=== PATIENT | male | born 1960 | race Caucasian/White ===

== ENCOUNTER 2020-08-21 10:28 | Inpatient (IN) | payer OTHER, BC ==
[~2020-08-21] VITALS: Ht 182.9 cm; Wt 115.5 kg
[2020-08-21 10:59] LABS: BASOPHILS # (AUTO) 0.1 X10'3 (0-0.2); BASOPHILS % (AUTO) 0.6 % (0-1); EOSINOPHILS # (AUTO) 0.2 X10'3 (0-0.9); EOSINOPHILS % (AUTO) 1.9 % (0-6); HEMATOCRIT 30.6 % (42.0-52.0); LYMPHOCYTES # (AUTO) 1.1 X10'3 (1.1-4.8); MEAN CORPUSCULAR HEMOGLOBIN 29.9 PG (27.0-31.0); MEAN CORPUSCULAR HGB CONC 32.7 g/dL (33.0-36.5); MEAN CORPUSCULAR VOLUME 91.4 FL (78-98); MEAN PLATELET VOLUME 7.2 FL (7.4-10.4); MONOCYTES # (AUTO) 0.8 X10'3 (0-0.9); MONOCYTES % (AUTO) 7.8 % (2-12); NEUTROPHILS # (AUTO) 7.7 X10'3 (1.8-7.7); NEUTROPHILS % (AUTO) 78.7 % (42-75); PLATELET COUNT 322 X10'3 (140-440); RED BLOOD COUNT 3.35 X10'6 (4.70-6.10); RED CELL DISTRIBUTION WIDTH 17.5 % (11.5-14.5); WHITE BLOOD COUNT 9.8 X10'3 (4.5-11.0)
[2020-08-21 11:13] LABS: ALANINE AMINOTRANSFERASE 26 U/L (12-78); ALBUMIN 3.5 G/DL (3.4-5.0); ALBUMIN/GLOBULIN RATIO 0.9 (1.1-1.5); ALKALINE PHOSPHATASE 97 IU/L (46-116); ANION GAP 8 (8-16); ASPARTATE AMINO TRANSFERASE 14 U/L (10-37); BILIRUBIN,TOTAL 0.5 MG/DL (0.1-1.0); BLOOD UREA NITROGEN 23 MG/DL (7-18); BUN/CREATININE RATIO 18.5 (5.4-32.0); CALCIUM 8.8 MG/DL (8.5-10.1); CHLORIDE 107 MMOL/L (99-107); CREATININE 1.24 MG/DL (0.60-1.10); GLUCOSE 122 MG/DL (70-104); POTASSIUM 4.3 MMOL/L (3.5-5.1); SODIUM 143 MMOL/L (135-145); TOTAL CARBON DIOXIDE 27.9 MMOL/L (24-32); TOTAL PROTEIN 7.2 G/DL (6.4-8.2); eGFR 60 ML/MIN
[2020-08-21 11:16] LABS: TROPONIN I 0.12 NG/ML (0.0-0.05)
--- NOTE | 2020-08-21 12:45 | NUR ---
PLAN TO ADMIT TO HOSPITAL, CT HEAD AND ABDOMEN, NAHUM AGUIRRE IN ROOM DISCUSSING PLAN OF CARE
--- NOTE | 2020-08-21 12:46 | NUR ---
NO HEPARIN, NO BLOOD THINNERS PER NAHUM AGUIRRE
--- NOTE | 2020-08-21 13:13 | NUR ---
in ct scan per
--- NOTE | 2020-08-21 13:35 | NUR ---
NAHUM AGUIRRE CAN DRINK NOW THAT CT SCANS COMPLETED
[2020-08-21 13:56] LABS: PARTIAL THROMBOPLASTIN TIME 24 SECONDS (22-32)
[2020-08-21 14:17] LABS: CLARITY,URINE CLEAR (Clear); COLOR,URINE YELLOW (Yellow); GLUCOSE, URINE NEGATIVE (Neg); KETONES,URINE NEGATIVE (Neg); LEUKOCYTE ESTERASE ,URINE NEGATIVE (Neg); NITRITES, URINE NEGATIVE (Neg); OCCULT BLOOD,URINE NEGATIVE (Neg); PROTEIN,URINE 30 mg/dl (Neg)
[2020-08-21 14:19] LABS: UA COLLECTION TYPE CLN CATCH MIDSTREAM
[2020-08-21 14:23] LABS: BACTERIA,URINE NONE SEEN /HPF (Neg); MUCUS STRANDS NONE SEEN /LPF (Neg); RBC,URINE NONE SEEN /HPF (0-2); SQUAMOUS EPITHELIAL CELL,UR FEW /LPF (FEW); WBC,URINE 0-4 /HPF (0-4)
[2020-08-21] MEDS ORDERED: nitroGLYCERIN 0.4mg SUBLingual tab SL PRN (14:50)
[2020-08-21] MEDS ORDERED: morphine 2 MG/ML inj. syringe IV PRN ×2 (14:50)
[2020-08-21] MEDS ORDERED: magnesium hydroxide 30ml (MOM) UD suspension PO PRN (14:50)
[2020-08-21] MEDS ORDERED: acetaminophen 325mg tablet PO PRN ×2 (14:50)
[2020-08-21] MEDS ORDERED: ondansetron/PF 4mg/2ml inj IV PRN (14:50)
[2020-08-21] MEDS ORDERED: mag hydrox/Alum hydrox/simeth 30ml oral suspension PO PRN (14:50)
[2020-08-21] MEDS ORDERED: HYDROcodone/acetaminophen 5mg/325mg tablet PO PRN (14:50)
[2020-08-21 15:34] LABS: HEMOGLOBIN A1C 5.7 % (4.5-6.2)
[2020-08-21] MEDS ORDERED: ASPI81TA52 PO (15:53)
[2020-08-21] MEDS ORDERED: PANT-47 PO (15:53)
[2020-08-21] MEDS ORDERED: BENA40TA45 PO (15:53)
[2020-08-21] MEDS ORDERED: AMLO10TA PO (15:53)
[2020-08-21] MEDS ORDERED: ROSU40TA PO (15:53)
[2020-08-21] MEDS ORDERED: CARV-49 PO (15:53)
--- NOTE | 2020-08-21 16:54 | NUR ---
ALMAZ CELL [phone]
[2020-08-21] MEDS ORDERED: iohexol 350MG/ML 100ml bottle IV ONE (18:12)
--- NOTE | 2020-08-21 18:23 | NUR ---
NEURO TELE CONSULT FINISHED PRIOR TO PATIENT LEAVING FOR CTA NECK/HEAD
--- NOTE | 2020-08-21 18:23 | NUR ---
TO CT SCAN
--- NOTE | 2020-08-21 19:45 | NUR ---
PHONE REPORT TO GWEN LECHUGA PCU. JOVANNI TO GO TO ROOM 3013A ON [facility] WITH RN ON MONITOR
--- NOTE | 2020-08-21 19:48 | NUR ---
PER REQ OF PRIMARY RN, HOSPITALIST CONTACTED AND NOTIFIED THAT ED TROPONIN PROTOCOL HAD NOT BEEN ORDERED INITIALLY. DR DUGAN WISHES THIS TO BE ORDERED, I ORDERED TROPONIN PROTOCOL AT THIS TIME.
[2020-08-21 20:00] VITALS: BP 168/92
[2020-08-21] MEDS: carvedilol 6.25mg tablet PO SCH (21:15)
[2020-08-21 22:00] VITALS: BP 106/65
[2020-08-22] VITALS (8 sets, daily range): BP systolic 118–149; BP diastolic 65–87
[2020-08-22 01:50] LABS: BASOPHILS # (AUTO) 0.1 X10'3 (0-0.2); BASOPHILS % (AUTO) 0.9 % (0-1); EOSINOPHILS # (AUTO) 0.3 X10'3 (0-0.9); EOSINOPHILS % (AUTO) 3.4 % (0-6); HEMATOCRIT 26.7 % (42.0-52.0); HEMOGLOBIN 8.7 g/dl (14.0-17.9); LYMPHOCYTES % (AUTO) 20.6 % (21-51); MEAN CORPUSCULAR HEMOGLOBIN 30.1 PG (27.0-31.0); MEAN CORPUSCULAR HGB CONC 32.6 g/dL (33.0-36.5); MEAN CORPUSCULAR VOLUME 92.3 FL (78-98); MEAN PLATELET VOLUME 7.6 FL (7.4-10.4); MONOCYTES # (AUTO) 0.9 X10'3 (0-0.9); MONOCYTES % (AUTO) 9.5 % (2-12); NEUTROPHILS # (AUTO) 6.4 X10'3 (1.8-7.7); NEUTROPHILS % (AUTO) 65.6 % (42-75); PLATELET COUNT 289 X10'3 (140-440); RED CELL DISTRIBUTION WIDTH 17.9 % (11.5-14.5); WHITE BLOOD COUNT 9.7 X10'3 (4.5-11.0)
[2020-08-22 03:24] LABS: ALANINE AMINOTRANSFERASE 25 U/L (12-78); ALBUMIN/GLOBULIN RATIO 0.9 (1.1-1.5); ALKALINE PHOSPHATASE 73 IU/L (46-116); ANION GAP 8 (8-16); ASPARTATE AMINO TRANSFERASE 15 U/L (10-37); BILIRUBIN,TOTAL 0.6 MG/DL (0.1-1.0); BLOOD UREA NITROGEN 37 MG/DL (7-18); BUN/CREATININE RATIO 34.6 (5.4-32.0); CALCIUM 8.9 MG/DL (8.5-10.1); CHLORIDE 106 MMOL/L (99-107); CHOL/HDL RATIO 3.1 (0.00-4.99); CHOLESTEROL 100 MG/DL (0-200); CREATININE 1.07 MG/DL (0.60-1.10); GLUCOSE 113 MG/DL (70-104); HDL CHOLESTEROL 32 MG/DL (35-60); LDL CHOLESTEROL 46 MG/DL (50-100); POTASSIUM 4.3 MMOL/L (3.5-5.1); SODIUM 140 MMOL/L (135-145); TOTAL CARBON DIOXIDE 25.9 MMOL/L (24-32); TOTAL PROTEIN 6.3 G/DL (6.4-8.2); TRIGLYCERIDES 140 MG/DL (20-135); eGFR 71 ML/MIN
--- NOTE | 2020-08-22 07:00 | NUR ---
Patient in room PCU 3013. I have received report from Lorraine HIDALGO and had the opportunity to ask questions and assume patient care.
[2020-08-22 07:44] LABS: % IRON SATURATION 13 % (11-46); IRON 48 UG/DL (53-167); TOTAL IRON BINDING CAPACITY 365 UG/DL (259-388)
[2020-08-22] MEDS ORDERED: amLODIPine 5mg tablet PO SCH (08:00)
[2020-08-22] MEDS ORDERED: lisinopril 20mg tablet PO SCH (08:00)
[2020-08-22] MEDS ORDERED: pantoprazole 40mg Tablet.DR PO SCH (08:00)
[2020-08-22] MEDS: atorvastatin 20mg tablet PO SCH (08:55)
[2020-08-22] MEDS: carvedilol 6.25mg tablet PO SCH ×2 (08:55→21:02)
[2020-08-22 11:52] LABS: D-DIMER 1.82 MG/L FEU (0-0.50)
--- NOTE | 2020-08-22 15:19 | NUR ---
PAGER ID: [phone] MESSAGE: re: [id number], Niki Campbell May I have an order to send stool for guaiac test? (is brown/black, odorous) thank you, Sangita [phone] Will continue to monitor.
[2020-08-22 15:56] LABS: OCCULT BLOOD STOOL POSITIVE (Neg)
--- NOTE | 2020-08-22 18:00 | NUR ---
Problems reprioritized. Patient report given, questions answered & plan of care reviewed with Sangita HIDALGO.
--- NOTE | 2020-08-22 18:27 | NUR ---
Problems reprioritized. Patient report given, questions answered & plan of care reviewed with Christiane HIDALGO.
[2020-08-22] MEDS ORDERED: iohexol 350MG/ML 100ml bottle IV ONE (19:04)
[2020-08-22] MEDS: clopidogrel 75mg tablet PO SCH (21:03)
[2020-08-23] VITALS (14 sets, daily range): BP systolic 101–129; BP diastolic 52–73
[2020-08-23 06:05] LABS: BASOPHILS # (AUTO) 0.1 X10'3 (0-0.2); BASOPHILS % (AUTO) 0.8 % (0-1); EOSINOPHILS # (AUTO) 0.4 X10'3 (0-0.9); EOSINOPHILS % (AUTO) 4.3 % (0-6); HEMATOCRIT 26.1 % (42.0-52.0); HEMOGLOBIN 8.7 g/dl (14.0-17.9); LYMPHOCYTES # (AUTO) 1.7 X10'3 (1.1-4.8); LYMPHOCYTES % (AUTO) 19.4 % (21-51); MEAN CORPUSCULAR HEMOGLOBIN 30.5 PG (27.0-31.0); MEAN CORPUSCULAR HGB CONC 33.2 g/dL (33.0-36.5); MEAN CORPUSCULAR VOLUME 91.8 FL (78-98); MEAN PLATELET VOLUME 7.5 FL (7.4-10.4); MONOCYTES % (AUTO) 11.2 % (2-12); NEUTROPHILS # (AUTO) 5.7 X10'3 (1.8-7.7); NEUTROPHILS % (AUTO) 64.3 % (42-75); PLATELET COUNT 282 X10'3 (140-440); RED BLOOD COUNT 2.84 X10'6 (4.70-6.10); RED CELL DISTRIBUTION WIDTH 17.3 % (11.5-14.5); WHITE BLOOD COUNT 8.9 X10'3 (4.5-11.0)
[2020-08-23 06:09] LABS: ALANINE AMINOTRANSFERASE 24 U/L (12-78); ALBUMIN 3.3 G/DL (3.4-5.0); ALKALINE PHOSPHATASE 76 IU/L (46-116); ANION GAP 7 (8-16); ASPARTATE AMINO TRANSFERASE 14 U/L (10-37); BILIRUBIN,TOTAL 0.5 MG/DL (0.1-1.0); BLOOD UREA NITROGEN 29 MG/DL (7-18); BUN/CREATININE RATIO 21.5 (5.4-32.0); CALCIUM 8.9 MG/DL (8.5-10.1); CHLORIDE 106 MMOL/L (99-107); CREATININE 1.35 MG/DL (0.60-1.10); GLUCOSE 100 MG/DL (70-104); POTASSIUM 4.3 MMOL/L (3.5-5.1); SODIUM 140 MMOL/L (135-145); TOTAL CARBON DIOXIDE 27.2 MMOL/L (24-32); TOTAL PROTEIN 6.6 G/DL (6.4-8.2); eGFR 54 ML/MIN
--- NOTE | 2020-08-23 06:35 | NUR ---
Problems reprioritized. Patient report given, questions answered & plan of care reviewed with Marleni HIDALGO.
--- NOTE | 2020-08-23 07:02 | NUR ---
Patient in room PCU 3013. I have received report from Roberta HIDALGO and had the opportunity to ask questions and assume patient care.
[2020-08-23] MEDS ORDERED: metoprolol tartrate 1mg/ml inj IV PRN (07:25)
[2020-08-23] MEDS ORDERED: regadenoson 0.4mg/5ml syringe IV PRN (07:25)
[2020-08-23] MEDS ORDERED: aminophylline 250mg/10ml inj. IV PRN (07:25)
[2020-08-23] MEDS ORDERED: nitroGLYCERIN 0.4mg SUBLingual tab SL PRN (07:25)
[2020-08-23] MEDS: pantoprazole 40mg Tablet.DR PO SCH ×3 (07:49→20:42)
[2020-08-23] MEDS: atorvastatin 20mg tablet PO SCH ×2 (07:49→08:28)
[2020-08-23] MEDS: clopidogrel 75mg tablet PO SCH ×2 (07:49→08:29)
[2020-08-23] MEDS: carvedilol 6.25mg tablet PO SCH ×2 (08:26→20:42)
--- NOTE | 2020-08-23 12:34 | NUR ---
Paged Dr. Yu PAGER ID: [phone] MESSAGE: [phone] Adrian Prince. Valeria results in. Let me know if u want to continue NPO. JOHNU Crystal
--- NOTE | 2020-08-23 18:00 | NUR ---
Patient in room PCU 3013. I have received report from Marleni HIDALGO and had the opportunity to ask questions and assume patient care.
--- NOTE | 2020-08-23 18:37 | NUR ---
Problems reprioritized. Patient report given, questions answered & plan of care reviewed with Roberta HIDALGO.
[2020-08-24] VITALS (11 sets, daily range): BP systolic 108–149; BP diastolic 62–89
--- NOTE | 2020-08-24 07:00 | NUR ---
Patient in room PCU 3013. I have received report from Roberta HIDALGO and had the opportunity to ask questions and assume patient care.
--- NOTE | 2020-08-24 07:14 | NUR ---
Problems reprioritized. Patient report given, questions answered & plan of care reviewed with Marleni HIDALGO.
[2020-08-24 07:52] LABS: BASOPHILS # (AUTO) 0.1 X10'3 (0-0.2); BASOPHILS % (AUTO) 0.8 % (0-1); EOSINOPHILS # (AUTO) 0.3 X10'3 (0-0.9); EOSINOPHILS % (AUTO) 4.6 % (0-6); HEMATOCRIT 25.5 % (42.0-52.0); HEMOGLOBIN 8.3 g/dl (14.0-17.9); LYMPHOCYTES # (AUTO) 1.7 X10'3 (1.1-4.8); LYMPHOCYTES % (AUTO) 23.7 % (21-51); MEAN CORPUSCULAR HEMOGLOBIN 29.6 PG (27.0-31.0); MEAN CORPUSCULAR HGB CONC 32.4 g/dL (33.0-36.5); MEAN CORPUSCULAR VOLUME 91.5 FL (78-98); MEAN PLATELET VOLUME 7.7 FL (7.4-10.4); MONOCYTES # (AUTO) 0.7 X10'3 (0-0.9); MONOCYTES % (AUTO) 10.3 % (2-12); NEUTROPHILS # (AUTO) 4.3 X10'3 (1.8-7.7); NEUTROPHILS % (AUTO) 60.6 % (42-75); PLATELET COUNT 263 X10'3 (140-440); RED BLOOD COUNT 2.79 X10'6 (4.70-6.10); RED CELL DISTRIBUTION WIDTH 17.1 % (11.5-14.5); WHITE BLOOD COUNT 7.1 X10'3 (4.5-11.0)
[2020-08-24 07:57] LABS: ALANINE AMINOTRANSFERASE 28 U/L (12-78); ALBUMIN 3.3 G/DL (3.4-5.0); ALKALINE PHOSPHATASE 78 IU/L (46-116); ANION GAP 9 (8-16); ASPARTATE AMINO TRANSFERASE 18 U/L (10-37); BILIRUBIN,TOTAL 0.5 MG/DL (0.1-1.0); BLOOD UREA NITROGEN 26 MG/DL (7-18); BUN/CREATININE RATIO 21.5 (5.4-32.0); CALCIUM 8.9 MG/DL (8.5-10.1); CHLORIDE 105 MMOL/L (99-107); CREATININE 1.21 MG/DL (0.60-1.10); GLUCOSE 101 MG/DL (70-104); POTASSIUM 4.2 MMOL/L (3.5-5.1); SODIUM 140 MMOL/L (135-145); TOTAL CARBON DIOXIDE 26.5 MMOL/L (24-32); TOTAL PROTEIN 6.6 G/DL (6.4-8.2); eGFR 62 ML/MIN
[2020-08-24] MEDS ORDERED: fentaNYL/PF 50MCG/1 ML 2ML syringe ONE (08:19)
[2020-08-24] MEDS ORDERED: MIDAZolam 1 MG/ML 5ML VIAL ONE (08:20)
[2020-08-24] MEDS ORDERED: LIDOcaine Viscous 15ml cup ONE (08:20)
[2020-08-24] MEDS: pantoprazole 40mg Tablet.DR PO SCH (10:34)
[2020-08-24] MEDS: carvedilol 6.25mg tablet PO SCH (10:34)
[2020-08-24] MEDS ORDERED: PANT-47 PO (10:38)
[2020-08-24] MEDS ORDERED: CLOP75TA34 PO (10:38)
--- NOTE | 2020-08-24 12:33 | NUR ---
Patient stable for discharge per providers orders. Medications and discharge instructions discussed. PIV discontinued cannula intact. Belongings sent with patient. Wheeled to lobby via nursing staff. Went home in private vehicle.
== END 2020-08-24 12:33 | disposition home or self-care (01) | DRG 64 ==
LOC: ER 10:28 → ED HOLD 14:46 → EDBEDREQ 19:22 → PCU 3S 20:10
PROVIDERS: ADMIT Internal Medicine; ATTEND Internal Medicine
PROC: B3251ZZ Computerized Tomography (CT Scan) of Bilateral Common Carotid Arteries using Low Osmolar Contrast (ICD-10-PCS; 2020-08-21)
PROC: B32G1ZZ Computerized Tomography (CT Scan) of Bilateral Vertebral Arteries using Low Osmolar Contrast (ICD-10-PCS; 2020-08-21)
PROC: B32R1ZZ Computerized Tomography (CT Scan) of Intracranial Arteries using Low Osmolar Contrast (ICD-10-PCS; 2020-08-21)
PROC: B3281ZZ Computerized Tomography (CT Scan) of Bilateral Internal Carotid Arteries using Low Osmolar Contrast (ICD-10-PCS; 2020-08-21)
PROC: 5A09357 Assistance with Respiratory Ventilation, Less than 24 Consecutive Hours, Continuous Positive Airway Pressure (ICD-10-PCS; principal; 2020-08-22)
PROC: B32T1ZZ Computerized Tomography (CT Scan) of Left Pulmonary Artery using Low Osmolar Contrast (ICD-10-PCS; 2020-08-22)
PROC: B3201ZZ Computerized Tomography (CT Scan) of Thoracic Aorta using Low Osmolar Contrast (ICD-10-PCS; 2020-08-22)
PROC: B32S1ZZ Computerized Tomography (CT Scan) of Right Pulmonary Artery using Low Osmolar Contrast (ICD-10-PCS; 2020-08-22)
PROC: 5A09357 Assistance with Respiratory Ventilation, Less than 24 Consecutive Hours, Continuous Positive Airway Pressure (ICD-10-PCS; 2020-08-23)
PROC: 4A02XM4 Measurement of Cardiac Total Activity, External Approach (ICD-10-PCS; 2020-08-23)
PROC: 3E073KZ Introduction of Other Diagnostic Substance into Coronary Artery, Percutaneous Approach (ICD-10-PCS; 2020-08-23)
PROC: 0DB68ZX Excision of Stomach, Via Natural or Artificial Opening Endoscopic, Diagnostic (ICD-10-PCS; 2020-08-24)
PROC: 0W3P8ZZ Control Bleeding in Gastrointestinal Tract, Via Natural or Artificial Opening Endoscopic (ICD-10-PCS; 2020-08-24)
DX: I63.9 Cerebral infarction, unspecified (principal); I21.A1 Myocardial infarction type 2; K92.2 Gastrointestinal hemorrhage, unspecified; E78.5 Hyperlipidemia, unspecified; I10 Essential (primary) hypertension; K29.70 Gastritis, unspecified, without bleeding; E78.00 Pure hypercholesterolemia, unspecified; G47.33 Obstructive sleep apnea (adult) (pediatric); K21.9 Gastro-esophageal reflux disease without esophagitis; K31.819 Angiodysplasia of stomach and duodenum without bleeding; R29.700 NIHSS score 0; K22.2 Esophageal obstruction; K43.9 Ventral hernia without obstruction or gangrene; D50.0 Iron deficiency anemia secondary to blood loss (chronic); K44.9 Diaphragmatic hernia without obstruction or gangrene; Z79.02 Long term (current) use of antithrombotics/antiplatelets; Z79.899 Other long term (current) drug therapy; Z83.3 Family history of diabetes mellitus; Z86.73 Personal history of transient ischemic attack (TIA), and cerebral infarction without residual deficits; Z88.0 Allergy status to penicillin; Z88.2 Allergy status to sulfonamides; Z79.82 Long term (current) use of aspirin; Z90.49 Acquired absence of other specified parts of digestive tract
CPT/HCPCS: 36415; 43227; 43239; 70450; 70496; 70498; 70551; 71275; 74176; 78452; 80053; 80061; 81001; 82272; 82728; 83036; 83540; 83550; 83880; 84443; 84484; 85025; 85379; 85610; 85651; 85730; 86038; 87081; 93005; 93017; 93306; 99152; 99285; A4620; A9500; G0378; J2250; J2785; J3010; J7040; Q9967

== ENCOUNTER 2020-08-31 21:05 | Inpatient (IN) | payer OTHER, BC ==
[~2020-08-31] VITALS: Ht 182.9 cm; Wt 114.6 kg
[~2020-08-31 21:05] MED LIST: AMLO10TA PO; ASPI81TA52 PO; BENA40TA45 PO; CARV-49 PO; CLOP75TA34 PO; PANT-47 PO; ROSU40TA PO; temazepam 15mg capsule PO PRN
[2020-08-31 21:58] LABS: BASOPHILS # (AUTO) 0.1 X10'3 (0-0.2); BASOPHILS % (AUTO) 0.7 % (0-1); EOSINOPHILS # (AUTO) 0.3 X10'3 (0-0.9); LYMPHOCYTES # (AUTO) 1.3 X10'3 (1.1-4.8); LYMPHOCYTES % (AUTO) 15.2 % (21-51); MEAN CORPUSCULAR HGB CONC 33.3 g/dL (33.0-36.5); MEAN CORPUSCULAR VOLUME 90.2 FL (78-98); MEAN PLATELET VOLUME 7.7 FL (7.4-10.4); MONOCYTES # (AUTO) 0.8 X10'3 (0-0.9); MONOCYTES % (AUTO) 9.6 % (2-12); NEUTROPHILS # (AUTO) 6.3 X10'3 (1.8-7.7); NEUTROPHILS % (AUTO) 71.5 % (42-75); PLATELET COUNT 247 X10'3 (140-440); RED BLOOD COUNT 2.25 X10'6 (4.70-6.10); RED CELL DISTRIBUTION WIDTH 16.1 % (11.5-14.5); WHITE BLOOD COUNT 8.8 X10'3 (4.5-11.0)
[2020-08-31 22:00] LABS: HEMOGLOBIN 6.7 g/dl (14.0-17.9)
[2020-08-31 22:01] LABS: HEMATOCRIT 20.3 % (42.0-52.0)
[2020-08-31 22:03] LABS: PARTIAL THROMBOPLASTIN TIME 21 SECONDS (22-32)
[2020-08-31 22:05] LABS: ALANINE AMINOTRANSFERASE 22 U/L (12-78); ALBUMIN 3.4 G/DL (3.4-5.0); ALBUMIN/GLOBULIN RATIO 1.1 (1.1-1.5); ALKALINE PHOSPHATASE 69 IU/L (46-116); ANION GAP 12 (8-16); ASPARTATE AMINO TRANSFERASE 21 U/L (10-37); BILIRUBIN,TOTAL 0.4 MG/DL (0.1-1.0); BLOOD UREA NITROGEN 30 MG/DL (7-18); BUN/CREATININE RATIO 19.4 (5.4-32.0); CALCIUM 8.6 MG/DL (8.5-10.1); CHLORIDE 106 MMOL/L (99-107); CREATININE 1.55 MG/DL (0.60-1.10); GLUCOSE 128 MG/DL (70-104); SODIUM 143 MMOL/L (135-145); TOTAL CARBON DIOXIDE 25.2 MMOL/L (24-32); TOTAL PROTEIN 6.6 G/DL (6.4-8.2); eGFR 46 ML/MIN
[2020-08-31] MEDS ORDERED: morphine 2 MG/ML inj. syringe IV PRN ×2 (23:00)
[2020-08-31] MEDS ORDERED: ondansetron 4mg rapidly disintigrating tab PO PRN (23:00)
[2020-08-31] MEDS ORDERED: bisacodyl 10mg suppository rectal RC PRN (23:00)
[2020-08-31] MEDS ORDERED: magnesium hydroxide 30ml (MOM) UD suspension PO PRN (23:00)
[2020-08-31] MEDS ORDERED: mag hydrox/Alum hydrox/simeth 30ml oral suspension PO PRN (23:00)
[2020-08-31] MEDS ORDERED: acetaminophen 650mg rectal suppository RC PRN (23:00)
[2020-08-31] MEDS: normal saline 1000ml 1,000 ML IV SCH (23:00)
[2020-08-31] MEDS ORDERED: diphenhydrAMINE 50 mg/ml inj IV PRN (23:00)
[2020-08-31] MEDS ORDERED: diphenhydrAMINE 25mg capsule PO PRN (23:00)
[2020-08-31] MEDS ORDERED: ondansetron/PF 4mg/2ml inj IV PRN (23:00)
[2020-08-31] MEDS ORDERED: acetaminophen 325mg tablet PO PRN ×2 (23:00)
[2020-08-31] MEDS ORDERED: HYDROcodone/acetaminophen 5mg/325mg tablet PO PRN (23:00)
[2020-08-31 23:16] VITALS: BP 125/73
[2020-08-31 23:31] VITALS: BP 137/80
[2020-08-31] MEDS ORDERED: PANT40TA54 PO (23:54)
[2020-08-31] MEDS ORDERED: CLOP75TA15 PO (23:54)
[2020-09-01 00:31] VITALS: BP 139/72
[2020-09-01 00:45] VITALS: BP 129/69
[2020-09-01] MEDS: pantoprazole 40MG/NS 100ML BAG 100 ML IV SCH ×5 (01:13→19:07)
--- NOTE | 2020-09-01 01:42 | NUR ---
PATIENT PLACED ON HOSPITAL BED FOR COMFORT
[2020-09-01 01:51] LABS: ALANINE AMINOTRANSFERASE 29 U/L (12-78); ALBUMIN 3.5 G/DL (3.4-5.0); ALKALINE PHOSPHATASE 75 IU/L (46-116); ANION GAP 9 (8-16); ASPARTATE AMINO TRANSFERASE 20 U/L (10-37); BILIRUBIN,TOTAL 0.6 MG/DL (0.1-1.0); BLOOD UREA NITROGEN 29 MG/DL (7-18); BUN/CREATININE RATIO 20.6 (5.4-32.0); CALCIUM 8.5 MG/DL (8.5-10.1); CHLORIDE 105 MMOL/L (99-107); CHOLESTEROL 111 MG/DL (0-200); CREATININE 1.41 MG/DL (0.60-1.10); GLUCOSE 103 MG/DL (70-104); HDL CHOLESTEROL 37 MG/DL (35-60); LDL CHOLESTEROL 49 MG/DL (50-100); POTASSIUM 3.9 MMOL/L (3.5-5.1); SODIUM 142 MMOL/L (135-145); TOTAL PROTEIN 6.9 G/DL (6.4-8.2); TRIGLYCERIDES 149 MG/DL (20-135); eGFR 52 ML/MIN
[2020-09-01 02:05] LABS: BASOPHILS # (AUTO) 0.1 X10'3 (0-0.2); BASOPHILS % (AUTO) 0.7 % (0-1); EOSINOPHILS # (AUTO) 0.3 X10'3 (0-0.9); EOSINOPHILS % (AUTO) 3.5 % (0-6); HEMATOCRIT 23.6 % (42.0-52.0); HEMOGLOBIN 7.9 g/dl (14.0-17.9); LYMPHOCYTES # (AUTO) 1.8 X10'3 (1.1-4.8); LYMPHOCYTES % (AUTO) 18.9 % (21-51); MEAN CORPUSCULAR HEMOGLOBIN 30.5 PG (27.0-31.0); MEAN CORPUSCULAR HGB CONC 33.7 g/dL (33.0-36.5); MEAN CORPUSCULAR VOLUME 90.3 FL (78-98); NEUTROPHILS # (AUTO) 6.4 X10'3 (1.8-7.7); NEUTROPHILS % (AUTO) 66.9 % (42-75); PLATELET COUNT 259 X10'3 (140-440); RED BLOOD COUNT 2.61 X10'6 (4.70-6.10); RED CELL DISTRIBUTION WIDTH 15.9 % (11.5-14.5); WHITE BLOOD COUNT 9.5 X10'3 (4.5-11.0)
[2020-09-01 02:51] LABS: OCCULT BLOOD STOOL POSITIVE (Neg)
[2020-09-01] MEDS ORDERED: pantoprazole 40mg Tablet.DR PO SCH (08:00)
[2020-09-01] MEDS: atorvastatin 20mg tablet PO SCH (08:00)
[2020-09-01] MEDS: docusate sod 100mg capsule PO SCH ×2 (08:00→19:06)
[2020-09-01] MEDS: amLODIPine 5mg tablet PO SCH (08:40)
[2020-09-01] MEDS: lisinopril 20mg tablet PO SCH (08:40)
[2020-09-01] MEDS: carvedilol 6.25mg tablet PO SCH ×2 (08:41→19:06)
[2020-09-01] MEDS ORDERED: PEG 3350/Na sulf,bicarb,Cl/KCl oral sol 4 liter bottle PO ONE (11:20)
[2020-09-01] MEDS: normal saline 1000ml 1,000 ML IV SCH (13:40)
[2020-09-01 16:22] VITALS: BP 138/68
[2020-09-01 19:09] VITALS: BP 114/68
[2020-09-01 22:00] VITALS: BP 114/68
[2020-09-02] VITALS (15 sets, daily range): BP systolic 118–159; BP diastolic 67–94
[2020-09-02] MEDS: pantoprazole 40MG/NS 100ML BAG 100 ML IV SCH ×5 (00:08→22:40)
--- NOTE | 2020-09-02 06:14 | NUR ---
Problems reprioritized. Patient report given, questions answered & plan of care reviewed with GWEN Donovan.
--- NOTE | 2020-09-02 06:36 | NUR ---
Patient in room MED 312. I have received report from GWEN Medrano and had the opportunity to ask questions and assume patient care.
[2020-09-02] MEDS: carvedilol 6.25mg tablet PO SCH ×2 (07:09→21:55)
[2020-09-02] MEDS: docusate sod 100mg capsule PO SCH ×2 (08:00→20:00)
[2020-09-02 08:28] LABS: BASOPHILS # (AUTO) 0.1 X10'3 (0-0.2); BASOPHILS % (AUTO) 0.7 % (0-1); EOSINOPHILS # (AUTO) 0.3 X10'3 (0-0.9); EOSINOPHILS % (AUTO) 4.3 % (0-6); HEMOGLOBIN 7.7 g/dl (14.0-17.9); LYMPHOCYTES % (AUTO) 13.9 % (21-51); MEAN CORPUSCULAR HEMOGLOBIN 29.9 PG (27.0-31.0); MEAN CORPUSCULAR HGB CONC 33.5 g/dL (33.0-36.5); MEAN CORPUSCULAR VOLUME 89.2 FL (78-98); MEAN PLATELET VOLUME 7.9 FL (7.4-10.4); MONOCYTES # (AUTO) 0.6 X10'3 (0-0.9); MONOCYTES % (AUTO) 8.7 % (2-12); NEUTROPHILS # (AUTO) 5.1 X10'3 (1.8-7.7); NEUTROPHILS % (AUTO) 72.4 % (42-75); PLATELET COUNT 283 X10'3 (140-440); RED BLOOD COUNT 2.58 X10'6 (4.70-6.10); RED CELL DISTRIBUTION WIDTH 16.1 % (11.5-14.5)
[2020-09-02 08:49] LABS: ALANINE AMINOTRANSFERASE 27 U/L (12-78); ALBUMIN 3.2 G/DL (3.4-5.0); ALKALINE PHOSPHATASE 75 IU/L (46-116); ANION GAP 9 (8-16); ASPARTATE AMINO TRANSFERASE 23 U/L (10-37); BILIRUBIN,TOTAL 0.8 MG/DL (0.1-1.0); BLOOD UREA NITROGEN 18 MG/DL (7-18); BUN/CREATININE RATIO 17.1 (5.4-32.0); CALCIUM 8.4 MG/DL (8.5-10.1); CHLORIDE 106 MMOL/L (99-107); CREATININE 1.05 MG/DL (0.60-1.10); GLUCOSE 92 MG/DL (70-104); POTASSIUM 4.1 MMOL/L (3.5-5.1); SODIUM 143 MMOL/L (135-145); TOTAL PROTEIN 6.5 G/DL (6.4-8.2); eGFR 73 ML/MIN
[2020-09-02] MEDS ORDERED: LIDOcaine Viscous 15ml cup ONE (17:32)
[2020-09-02] MEDS ORDERED: fentaNYL/PF 50MCG/1 ML 2ML syringe ONE (17:33)
[2020-09-02] MEDS ORDERED: MIDAZolam 1 MG/ML 5ML VIAL ONE (17:33)
--- NOTE | 2020-09-02 18:00 | NUR ---
Patient off unit in procedure
--- NOTE | 2020-09-02 18:00 | NUR ---
Patient in room MED 312. I have received report from Venus HIDALGO and had the opportunity to ask questions and assume patient care.
--- NOTE | 2020-09-02 18:26 | NUR ---
Problems reprioritized. Patient report given, questions answered & plan of care reviewed with GWEN Mallory.
[2020-09-02] MEDS: amLODIPine 5mg tablet PO SCH (21:56)
[2020-09-02] MEDS: atorvastatin 20mg tablet PO SCH (21:56)
[2020-09-02] MEDS: lisinopril 20mg tablet PO SCH (21:56)
[2020-09-03] VITALS (10 sets, daily range): BP systolic 118–145; BP diastolic 63–90
[2020-09-03] MEDS: normal saline 1000ml 1,000 ML IV SCH (01:42)
[2020-09-03] MEDS: pantoprazole 40MG/NS 100ML BAG 100 ML IV SCH ×4 (01:42→16:00)
--- NOTE | 2020-09-03 06:10 | NUR ---
Problems reprioritized. Patient report given, questions answered & plan of care reviewed with Navarro HIDALGO.
--- NOTE | 2020-09-03 06:12 | NUR ---
Problems reprioritized. Patient report given, questions answered & plan of care reviewed with Jennifer HIDALGO.
[2020-09-03 06:38] LABS: ALANINE AMINOTRANSFERASE 24 U/L (12-78); ALKALINE PHOSPHATASE 73 IU/L (46-116); ANION GAP 7 (8-16); ASPARTATE AMINO TRANSFERASE 13 U/L (10-37); BILIRUBIN,TOTAL 0.6 MG/DL (0.1-1.0); BLOOD UREA NITROGEN 16 MG/DL (7-18); BUN/CREATININE RATIO 14.8 (5.4-32.0); CALCIUM 8.3 MG/DL (8.5-10.1); CHLORIDE 106 MMOL/L (99-107); CREATININE 1.08 MG/DL (0.60-1.10); GLUCOSE 87 MG/DL (70-104); POTASSIUM 3.8 MMOL/L (3.5-5.1); SODIUM 140 MMOL/L (135-145); TOTAL CARBON DIOXIDE 26.7 MMOL/L (24-32); TOTAL PROTEIN 6.1 G/DL (6.4-8.2); eGFR 70 ML/MIN
[2020-09-03 06:42] LABS: BASOPHILS # (AUTO) 0.1 X10'3 (0-0.2); BASOPHILS % (AUTO) 0.8 % (0-1); EOSINOPHILS # (AUTO) 0.3 X10'3 (0-0.9); EOSINOPHILS % (AUTO) 4.4 % (0-6); HEMATOCRIT 23.4 % (42.0-52.0); HEMOGLOBIN 7.7 g/dl (14.0-17.9); LYMPHOCYTES # (AUTO) 1.4 X10'3 (1.1-4.8); LYMPHOCYTES % (AUTO) 19.7 % (21-51); MEAN CORPUSCULAR HEMOGLOBIN 29.2 PG (27.0-31.0); MEAN CORPUSCULAR HGB CONC 32.8 g/dL (33.0-36.5); MEAN CORPUSCULAR VOLUME 88.9 FL (78-98); MEAN PLATELET VOLUME 7.7 FL (7.4-10.4); MONOCYTES # (AUTO) 0.8 X10'3 (0-0.9); MONOCYTES % (AUTO) 10.6 % (2-12); NEUTROPHILS # (AUTO) 4.6 X10'3 (1.8-7.7); NEUTROPHILS % (AUTO) 64.5 % (42-75); PLATELET COUNT 322 X10'3 (140-440); RED BLOOD COUNT 2.63 X10'6 (4.70-6.10); RED CELL DISTRIBUTION WIDTH 15.6 % (11.5-14.5); WHITE BLOOD COUNT 7.2 X10'3 (4.5-11.0)
[2020-09-03] MEDS: carvedilol 6.25mg tablet PO SCH (09:37)
[2020-09-03] MEDS: amLODIPine 5mg tablet PO SCH (09:38)
[2020-09-03] MEDS: atorvastatin 20mg tablet PO SCH (09:38)
[2020-09-03] MEDS: docusate sod 100mg capsule PO SCH (09:39)
[2020-09-03] MEDS: lisinopril 20mg tablet PO SCH (09:39)
[2020-09-03] MEDS ORDERED: epiNEPHrine 0.1mg/ml 10ml syringe ONE (14:19)
--- NOTE | 2020-09-03 18:09 | NUR ---
Patient in room MED 312. I have received report from Shahnaz RN and had the opportunity to ask questions and assume patient care.
== END 2020-09-03 19:05 | disposition home or self-care (01) | DRG 378 ==
LOC: ER 21:07 → ED HOLD 23:00 → UNDOADMIN 23:00 → MED 3N 09-01 12:20 → ED HOLD 09-01 12:20
PROVIDERS: ADMIT Family Medicine; ATTEND Internal Medicine
PROC: 30233N1 Transfusion of Nonautologous Red Blood Cells into Peripheral Vein, Percutaneous Approach (ICD-10-PCS; 2020-08-31)
PROC: 5A09357 Assistance with Respiratory Ventilation, Less than 24 Consecutive Hours, Continuous Positive Airway Pressure (ICD-10-PCS; principal; 2020-09-02)
PROC: 0W3P8ZZ Control Bleeding in Gastrointestinal Tract, Via Natural or Artificial Opening Endoscopic (ICD-10-PCS; 2020-09-02)
PROC: 0DBP8ZZ Excision of Rectum, Via Natural or Artificial Opening Endoscopic (ICD-10-PCS; 2020-09-02)
DX: K31.811 Angiodysplasia of stomach and duodenum with bleeding (principal); D62 Acute posthemorrhagic anemia; I13.0 Hypertensive heart and chronic kidney disease with heart failure and stage 1 through stage 4 chronic kidney disease, or unspecified chronic kidney disease; I50.20 Unspecified systolic (congestive) heart failure; N17.9 Acute kidney failure, unspecified; K92.2 Gastrointestinal hemorrhage, unspecified; E78.00 Pure hypercholesterolemia, unspecified; K62.1 Rectal polyp; R19.5 Other fecal abnormalities; K57.30 Diverticulosis of large intestine without perforation or abscess without bleeding; E78.5 Hyperlipidemia, unspecified; G47.30 Sleep apnea, unspecified; E86.0 Dehydration; N18.30 Chronic kidney disease, stage 3 unspecified; Z79.02 Long term (current) use of antithrombotics/antiplatelets; Z86.73 Personal history of transient ischemic attack (TIA), and cerebral infarction without residual deficits; Z87.442 Personal history of urinary calculi; Z88.0 Allergy status to penicillin; Z88.2 Allergy status to sulfonamides; Z79.899 Other long term (current) drug therapy
CPT/HCPCS: 36415; 36430; 43227; 43236; 43255; 45385; 80053; 80061; 82272; 83735; 83880; 84100; 85025; 85610; 85730; 86885; 86900; 86901; 86920; 87081; 99152; 99153; 99285; A4620; C1773; C9113; G0378; J0171; J2250; J3010; J7030; J7040; P9016

== ENCOUNTER 2020-09-15 07:44 | Day surgery (SDC) | payer OTHER, BC ==
[~2020-09-15] VITALS: Ht 182.9 cm; Wt 118.3 kg
[2020-09-15] VITALS (13 sets, daily range): BP systolic 123–162; BP diastolic 62–102
[~2020-09-15 07:44] MED LIST changes: -ASPI81TA52 PO; +CLOP75TA15 PO; -CLOP75TA34 PO; -PANT-47 PO; +PANT40TA54 PO; -temazepam 15mg capsule PO PRN
[2020-09-15] MEDS ORDERED: normal saline 1,000 ML IV SCH (08:15)
[2020-09-15] MEDS ORDERED: LORazepam 0.5 MG tablet PO PRN (08:15)
[2020-09-15] MEDS ORDERED: diphenhydrAMINE 25mg capsule PO PRN (08:15)
[2020-09-15] MEDS ORDERED: LIDOcaine/PRILOcaine 5gm cream TP ONE (08:40)
[2020-09-15 09:40] LABS: BASOPHILS # (AUTO) 0.1 X10'3 (0-0.2); BASOPHILS % (AUTO) 0.8 % (0-1); EOSINOPHILS # (AUTO) 0.3 X10'3 (0-0.9); EOSINOPHILS % (AUTO) 3.1 % (0-6); HEMATOCRIT 28.6 % (42.0-52.0); HEMOGLOBIN 9.3 g/dl (14.0-17.9); LYMPHOCYTES # (AUTO) 1.3 X10'3 (1.1-4.8); LYMPHOCYTES % (AUTO) 13.7 % (21-51); MEAN CORPUSCULAR HEMOGLOBIN 28.2 PG (27.0-31.0); MEAN CORPUSCULAR HGB CONC 32.4 g/dL (33.0-36.5); MEAN CORPUSCULAR VOLUME 86.9 FL (78-98); MEAN PLATELET VOLUME 7.9 FL (7.4-10.4); MONOCYTES # (AUTO) 0.8 X10'3 (0-0.9); MONOCYTES % (AUTO) 8.6 % (2-12); NEUTROPHILS # (AUTO) 6.7 X10'3 (1.8-7.7); NEUTROPHILS % (AUTO) 73.8 % (42-75); PLATELET COUNT 434 X10'3 (140-440); RED BLOOD COUNT 3.29 X10'6 (4.70-6.10); RED CELL DISTRIBUTION WIDTH 15.1 % (11.5-14.5); WHITE BLOOD COUNT 9.1 X10'3 (4.5-11.0)
[2020-09-15] MEDS ORDERED: iohexol 350 MG/ML 50ML vial IV ONE ×2 (09:45→10:56)
[2020-09-15] MEDS ORDERED: iohexol 350MG/ML 100ml bottle IV ONE (09:45)
[2020-09-15] MEDS ORDERED: midazolam 1 mg/ML 2ml injection ONE (09:45)
[2020-09-15] MEDS ORDERED: heparin 1,000unit/ml 10ml vial 10 ML ONE (09:45)
[2020-09-15] MEDS ORDERED: LIDOcaine 1% (10mg/ml)w/preservative injection 20ml MDV ONE (09:45)
[2020-09-15] MEDS ORDERED: fentaNYL/PF 50MCG/1 ML 2ML syringe ONE (09:45)
[2020-09-15] MEDS ORDERED: nitroGLYCERIN-Tridil 50MG/D5W 250 ML IV ONE (09:45)
[2020-09-15] MEDS ORDERED: verapamil 2.5 mg/ml inj IV ONE (09:45)
[2020-09-15 09:48] LABS: ALBUMIN 3.8 G/DL (3.4-5.0); ANION GAP 9 (8-16); BLOOD UREA NITROGEN 28 MG/DL (7-18); BUN/CREATININE RATIO 24.3 (5.4-32.0); CHLORIDE 106 MMOL/L (99-107); CREATININE 1.15 MG/DL (0.60-1.10); GLUCOSE 114 MG/DL (70-104); POTASSIUM 4.5 MMOL/L (3.5-5.1); SODIUM 141 MMOL/L (135-145); TOTAL CARBON DIOXIDE 25.6 MMOL/L (24-32); eGFR 65 ML/MIN
[2020-09-15 10:55] LABS: ISTAT HGB ART 9.2 g/dl (14.0-18.0); ISTAT Hct ART 27 %PCV (42-52); ISTAT O2 SATURATION ARTERIAL 94 % (95-98); ISTAT SOURCE ART
[2020-09-19 08:21] LABS: ISTAT Hct MIX 27 %PCV (42-52); ISTAT O2 SATURATION MIX VENOUS 69 % (60-80); ISTAT SOURCE CAP
== END 2020-09-15 17:05 | disposition home or self-care (01) ==
LOC: SSTAY O 07:44
PROVIDERS: ATTEND Internal Medicine Cardiovascular Disease
DX: R94.39 Abnormal result of other cardiovascular function study (principal); I25.10 Atherosclerotic heart disease of native coronary artery without angina pectoris; I10 Essential (primary) hypertension; E78.5 Hyperlipidemia, unspecified; G47.33 Obstructive sleep apnea (adult) (pediatric); D64.9 Anemia, unspecified; Z86.73 Personal history of transient ischemic attack (TIA), and cerebral infarction without residual deficits; Z79.01 Long term (current) use of anticoagulants; Z79.899 Other long term (current) drug therapy; Z90.49 Acquired absence of other specified parts of digestive tract; Z98.890 Other specified postprocedural states; Z82.49 Family history of ischemic heart disease and other diseases of the circulatory system
CPT/HCPCS: 36415; 76937; 80048; 82803; 85014; 85025; 85610; 93005; 93460; 99152; 99153; C1769; C1894; J1644; J2001; J2250; J3010; J7030; Q0163; Q9967; A4620; A6258; C1751; J3490

== ENCOUNTER 2021-03-04 09:32 | Inpatient (IN) | payer OTHER, BC ==
[~2021-03-04] VITALS: Ht 182.9 cm; Wt 116.0 kg
[2021-03-04 10:37] LABS: BASOPHILS # (AUTO) 0.1 X10'3 (0-0.2); BASOPHILS % (AUTO) 0.7 % (0-1); EOSINOPHILS # (AUTO) 0.2 X10'3 (0-0.9); EOSINOPHILS % (AUTO) 2.5 % (0-6); HEMATOCRIT 42.7 % (42.0-52.0); HEMOGLOBIN 14.3 g/dl (14.0-17.9); LYMPHOCYTES # (AUTO) 1.4 X10'3 (1.1-4.8); LYMPHOCYTES % (AUTO) 14.7 % (21-51); MEAN CORPUSCULAR HEMOGLOBIN 28.5 PG (27.0-31.0); MEAN CORPUSCULAR HGB CONC 33.6 g/dL (33.0-36.5); MEAN CORPUSCULAR VOLUME 84.8 FL (78-98); MEAN PLATELET VOLUME 8.5 FL (7.4-10.4); MONOCYTES # (AUTO) 0.7 X10'3 (0-0.9); MONOCYTES % (AUTO) 7.6 % (2-12); NEUTROPHILS # (AUTO) 6.9 X10'3 (1.8-7.7); NEUTROPHILS % (AUTO) 74.5 % (42-75); PLATELET COUNT 270 X10'3 (140-440); RED BLOOD COUNT 5.03 X10'6 (4.70-6.10); RED CELL DISTRIBUTION WIDTH 15.3 % (11.5-14.5); WHITE BLOOD COUNT 9.3 X10'3 (4.5-11.0)
[2021-03-04 10:45] LABS: PARTIAL THROMBOPLASTIN TIME 26 SECONDS (22-32)
[2021-03-04 10:49] LABS: ALANINE AMINOTRANSFERASE 29 U/L (12-78); ALBUMIN 3.6 G/DL (3.4-5.0); ALBUMIN/GLOBULIN RATIO 0.9 (1.1-1.5); ALKALINE PHOSPHATASE 88 IU/L (46-116); ANION GAP 10 (8-16); ASPARTATE AMINO TRANSFERASE 21 U/L (10-37); BILIRUBIN,TOTAL 0.8 MG/DL (0.1-1.0); BLOOD UREA NITROGEN 24 MG/DL (7-18); BUN/CREATININE RATIO 24.2 (5.4-32.0); CHLORIDE 104 MMOL/L (99-107); CREATININE 0.99 MG/DL (0.60-1.10); GLUCOSE 137 MG/DL (70-104); POTASSIUM 3.8 MMOL/L (3.5-5.1); SODIUM 141 MMOL/L (135-145); TOTAL CARBON DIOXIDE 26.8 MMOL/L (24-32); TOTAL PROTEIN 7.4 G/DL (6.4-8.2); eGFR 78 ML/MIN
[2021-03-04] MEDS ORDERED: aspirin 325mg tablet PO ONE (11:10)
[2021-03-04] MEDS ORDERED: magnesium Cl slow-release 64mg tablet PO PRN (11:15)
[2021-03-04] MEDS ORDERED: HYDROmorphone inj. 0.5 MG/0.5 ML DISP.SYRIN IV PRN (11:15)
[2021-03-04] MEDS ORDERED: HYDROmorphone/PF 0.2 MG/ML SYRINGE IV PRN (11:15)
[2021-03-04] MEDS ORDERED: metoclopramide 5 mg/ml inj IV PRN (11:15)
[2021-03-04] MEDS ORDERED: PERFLUTREN PROTEIN-A MICROSPHR (Optison) 0.22 MG/ML 3ML VIAL IV ONE (11:15)
[2021-03-04] MEDS ORDERED: potassium Cl 20 mEq SR tablet PO PRN ×2 (11:15)
[2021-03-04] MEDS ORDERED: HYDROcodone/acetaminophen 10/325mg tab PO PRN (11:15)
[2021-03-04] MEDS ORDERED: acetaminophen 325mg tablet PO PRN ×2 (11:15)
[2021-03-04] MEDS ORDERED: magnesium 4gm in 100ml NS 100 ML IV PRN (11:15)
[2021-03-04] MEDS ORDERED: magnesium hydroxide 30ml (MOM) UD suspension PO PRN (11:15)
[2021-03-04] MEDS ORDERED: ondansetron 4mg rapidly disintigrating tab PO PRN (11:15)
[2021-03-04] MEDS ORDERED: magnesium 2GM in 50ml NS 50 ML IV PRN (11:15)
[2021-03-04] MEDS ORDERED: mag hydrox/Alum hydrox/simeth 30ml oral suspension PO PRN (11:15)
[2021-03-04] MEDS ORDERED: potassium CL 10mEq/100ml bag 100 ML IV PRN (11:15)
[2021-03-04] MEDS ORDERED: HYDROcodone/acetaminophen 5mg/325mg tablet PO PRN (11:15)
[2021-03-04] MEDS ORDERED: ondansetron/PF 4mg/2ml inj IV PRN (11:15)
[2021-03-04] MEDS ORDERED: bisacodyl 10mg suppository rectal RC PRN (11:15)
[2021-03-04] MEDS ORDERED: iohexol 350MG/ML 100ml bottle IV ONE (11:17)
[2021-03-04] MEDS ORDERED: AMLO-708 PO (11:29)
[2021-03-04] MEDS ORDERED: BENA40TA90 PO (11:29)
[2021-03-04] MEDS ORDERED: CLOP75TA34 PO (11:29)
[2021-03-04] MEDS ORDERED: ROSU40TA22 PO (11:29)
[2021-03-04] MEDS ORDERED: CARV12.545 PO (11:29)
[2021-03-04] MEDS: normal saline 1000ml 1,000 ML IV SCH ×2 (11:41→21:15)
--- NOTE | 2021-03-04 13:53 | NUR ---
Called patient's per his request to let her know patient will be admitted and request she bring his CPAP and cell phone. , Kassandra: [phone]
[2021-03-04 13:57] LABS: MAGNESIUM 2.4 MG/DL (1.5-2.4)
--- NOTE | 2021-03-04 14:25 | NUR ---
Patient resting quietly in bed; denies needs at this time.
--- NOTE | 2021-03-04 14:29 | NUR ---
Patient reports decreased sensation in right hand compared to left; strength equal; no drift bilaterally.
[2021-03-04 18:37] LABS: CLARITY,URINE CLEAR (Clear); COLOR,URINE YELLOW (Yellow); GLUCOSE, URINE NEGATIVE (Neg); KETONES,URINE NEGATIVE (Neg); LEUKOCYTE ESTERASE ,URINE NEGATIVE (Neg); NITRITES, URINE NEGATIVE (Neg); OCCULT BLOOD,URINE NEGATIVE (Neg); PROTEIN,URINE 100 mg/dl (Neg)
[2021-03-04 18:40] LABS: UA COLLECTION TYPE CLN CATCH MIDSTREAM
[2021-03-04 19:01] LABS: BACTERIA,URINE NONE SEEN /HPF (Neg); MUCUS STRANDS NONE SEEN /LPF (Neg); RBC,URINE 0-2 /HPF (0-2); SQUAMOUS EPITHELIAL CELL,UR FEW /LPF (FEW); WBC,URINE 0-4 /HPF (0-4)
[2021-03-04 19:02] LABS: HYALINE CASTS 0-3 /LPF (NEGATIVE)
[2021-03-04] MEDS: K and/or MAG REPLACEMENT MC SCH (20:00)
[2021-03-04] MEDS: docusate sod 100mg capsule PO SCH (20:00)
[2021-03-04] MEDS ORDERED: carVEDilol 12.5mg tablet PO SCH (20:00)
[2021-03-04] MEDS ORDERED: temazepam 15mg capsule PO PRN (21:00)
[2021-03-05 02:00] VITALS: BP 93/45
[2021-03-05 05:44] LABS: BASOPHILS # (AUTO) 0.1 X10'3 (0-0.2); BASOPHILS % (AUTO) 0.8 % (0-1); EOSINOPHILS # (AUTO) 0.4 X10'3 (0-0.9); EOSINOPHILS % (AUTO) 3.9 % (0-6); HEMATOCRIT 42.2 % (42.0-52.0); LYMPHOCYTES # (AUTO) 1.5 X10'3 (1.1-4.8); LYMPHOCYTES % (AUTO) 15.3 % (21-51); MEAN CORPUSCULAR HEMOGLOBIN 28.2 PG (27.0-31.0); MEAN CORPUSCULAR HGB CONC 33.2 g/dL (33.0-36.5); MEAN CORPUSCULAR VOLUME 85.1 FL (78-98); MEAN PLATELET VOLUME 8.5 FL (7.4-10.4); MONOCYTES % (AUTO) 9.7 % (2-12); NEUTROPHILS % (AUTO) 70.3 % (42-75); PLATELET COUNT 292 X10'3 (140-440); RED BLOOD COUNT 4.95 X10'6 (4.70-6.10); RED CELL DISTRIBUTION WIDTH 15.5 % (11.5-14.5); WHITE BLOOD COUNT 9.9 X10'3 (4.5-11.0)
[2021-03-05 06:07] LABS: GLUCOSE 111 MG/DL (70-104); SODIUM 140 MMOL/L (135-145)
[2021-03-05 06:08] LABS: ALANINE AMINOTRANSFERASE 29 U/L (12-78); ALBUMIN 3.5 G/DL (3.4-5.0); ALBUMIN/GLOBULIN RATIO 0.9 (1.1-1.5); ALKALINE PHOSPHATASE 83 IU/L (46-116); ANION GAP 9 (8-16); ASPARTATE AMINO TRANSFERASE 17 U/L (10-37); BILIRUBIN,TOTAL 0.8 MG/DL (0.1-1.0); BLOOD UREA NITROGEN 27 MG/DL (7-18); BUN/CREATININE RATIO 26.7 (5.4-32.0); CALCIUM 8.8 MG/DL (8.5-10.1); CHLORIDE 104 MMOL/L (99-107); CHOL/HDL RATIO 5.6 (0.00-4.99); CHOLESTEROL 228 MG/DL (0-200); CREATININE 1.01 MG/DL (0.60-1.10); HDL CHOLESTEROL 41 MG/DL (35-60); LDL CHOLESTEROL 163 MG/DL (50-100); MAGNESIUM 2.5 MG/DL (1.5-2.4); POTASSIUM 3.6 MMOL/L (3.5-5.1); TOTAL PROTEIN 7.3 G/DL (6.4-8.2); TRIGLYCERIDES 142 MG/DL (20-135); eGFR 76 ML/MIN
[2021-03-05] MEDS ORDERED: clopidogrel 75mg tablet PO SCH (08:00)
[2021-03-05] MEDS ORDERED: non-formulary drug (Benazepril HCl 1 TAB) PO SCH (08:00)
[2021-03-05] MEDS: K and/or MAG REPLACEMENT MC SCH ×2 (08:00→20:00)
[2021-03-05] MEDS ORDERED: non-formulary drug (Amlodipine Besylate 1 TAB) PO SCH (08:00)
[2021-03-05] MEDS: atorvastatin 20mg tablet PO SCH (08:00)
[2021-03-05] MEDS: docusate sod 100mg capsule PO SCH ×2 (08:00→20:59)
[2021-03-05] MEDS: aspirin 81mg, enteric-coated 1 TAB TABLET.DR PO SCH (08:00)
--- NOTE | 2021-03-05 12:10 | NUR ---
PT TAKEN TO MRI, PT HAS A ROOM ON THE FLOOR; 313B AND REPORT HAS BEEN CALLED BY PT'S RN. PAGE SENT TO MRI AND REQUESTED THAT PT BE TAKEN TO HIS ROOM AFTER MRI IS COMPLETED
[2021-03-05 13:10] VITALS: BP 176/98
--- NOTE | 2021-03-05 13:34 | NUR ---
PAGER ID: [phone] MESSAGE: Dr. Mcgrath room [id number] Niki Campbell arrived to the floor with a BP of 176/99; Doesn't look like he has any PRN BP meds. Thank you Aggie BENTLEY
--- NOTE | 2021-03-05 13:47 | NUR ---
HTN. Per Dr. Ramila arciniega that patient is hypertensive for now; Will continue to monitor. Pt. asymptomatic.
[2021-03-05] MEDS: normal saline 1000ml 1,000 ML IV SCH ×2 (13:50→17:12)
--- NOTE | 2021-03-05 13:54 | NUR ---
PAGER ID: [phone] MESSAGE: JOHN ON TELE@[phone], [facility] CALLED, CALL BACK TO ENDY CLAIRE@ [phone] REGARDING [id number] [facility]. X
[2021-03-05 15:00] VITALS: BP 158/100
[2021-03-05] MEDS: lisinopril 20mg tablet PO SCH (16:15)
[2021-03-05 18:00] VITALS: BP_SYST 130; BP_SYST 167; BP_DIAS 102; BP_DIAS 63
--- NOTE | 2021-03-05 18:18 | NUR ---
Problems reprioritized. Patient report given to Jolynn HIDALGO, questions answered & plan of care reviewed with Jolynn HIDALGO. Pt. safe and stable at time of change of shift.
[2021-03-05] MEDS: carVEDilol 12.5mg tablet PO SCH (20:57)
[2021-03-05 22:00] VITALS: BP_SYST 116; BP_SYST 155; BP_DIAS 56; BP_DIAS 93
[2021-03-06 02:00] VITALS: BP 132/79
[2021-03-06] MEDS: normal saline 1000ml 1,000 ML IV SCH ×2 (03:15→06:52)
[2021-03-06 06:00] VITALS: BP 142/91
--- NOTE | 2021-03-06 06:29 | NUR ---
Problems reprioritized. Patient report given, questions answered & plan of care reviewed with Aggie HIDALGO.
[2021-03-06] MEDS: docusate sod 100mg capsule PO SCH (06:32)
[2021-03-06 06:42] LABS: BASOPHILS # (AUTO) 0.1 X10'3 (0-0.2); BASOPHILS % (AUTO) 0.9 % (0-1); EOSINOPHILS # (AUTO) 0.4 X10'3 (0-0.9); EOSINOPHILS % (AUTO) 4.7 % (0-6); HEMATOCRIT 40.5 % (42.0-52.0); HEMOGLOBIN 13.5 g/dl (14.0-17.9); LYMPHOCYTES # (AUTO) 1.2 X10'3 (1.1-4.8); LYMPHOCYTES % (AUTO) 15.3 % (21-51); MEAN CORPUSCULAR HEMOGLOBIN 28.5 PG (27.0-31.0); MEAN CORPUSCULAR HGB CONC 33.4 g/dL (33.0-36.5); MEAN CORPUSCULAR VOLUME 85.5 FL (78-98); MEAN PLATELET VOLUME 8.6 FL (7.4-10.4); MONOCYTES # (AUTO) 0.9 X10'3 (0-0.9); MONOCYTES % (AUTO) 11.6 % (2-12); NEUTROPHILS # (AUTO) 5.5 X10'3 (1.8-7.7); NEUTROPHILS % (AUTO) 67.5 % (42-75); PLATELET COUNT 271 X10'3 (140-440); RED BLOOD COUNT 4.74 X10'6 (4.70-6.10); RED CELL DISTRIBUTION WIDTH 15.7 % (11.5-14.5); WHITE BLOOD COUNT 8.1 X10'3 (4.5-11.0)
[2021-03-06 07:08] LABS: ALANINE AMINOTRANSFERASE 26 U/L (12-78); ALBUMIN 3.1 G/DL (3.4-5.0); ALBUMIN/GLOBULIN RATIO 0.9 (1.1-1.5); ALKALINE PHOSPHATASE 81 IU/L (46-116); ANION GAP 9 (8-16); ASPARTATE AMINO TRANSFERASE 9 U/L (10-37); BILIRUBIN,TOTAL 0.7 MG/DL (0.1-1.0); BLOOD UREA NITROGEN 26 MG/DL (7-18); BUN/CREATININE RATIO 22.6 (5.4-32.0); CHLORIDE 104 MMOL/L (99-107); CREATININE 1.15 MG/DL (0.60-1.10); GLUCOSE 105 MG/DL (70-104); MAGNESIUM 2.1 MG/DL (1.5-2.4); POTASSIUM 4.1 MMOL/L (3.5-5.1); SODIUM 139 MMOL/L (135-145); TOTAL CARBON DIOXIDE 26.2 MMOL/L (24-32); TOTAL PROTEIN 6.7 G/DL (6.4-8.2); eGFR 65 ML/MIN
[2021-03-06] MEDS: K and/or MAG REPLACEMENT MC SCH (08:00)
[2021-03-06] MEDS ORDERED: amLODIPine 5mg tablet PO SCH (08:00)
[2021-03-06] MEDS: atorvastatin 20mg tablet PO SCH (08:15)
[2021-03-06] MEDS: aspirin 81mg, enteric-coated 1 TAB TABLET.DR PO SCH (08:16)
[2021-03-06] MEDS: carVEDilol 12.5mg tablet PO SCH (08:16)
[2021-03-06 08:17] VITALS: BP_SYST 154
[2021-03-06] MEDS: lisinopril 20mg tablet PO SCH (08:17)
[2021-03-06] MEDS ORDERED: EZET10TA6 PO (09:37)
--- NOTE | 2021-03-06 11:20 | NUR ---
Discharge Note Pt. received discharge instructions with no further questions; Pt. signed discharge instructions; Pt. was stable for discharge per Dr. Yu. Pt. left via car with daughter. Pt. IV removed with catheter intact; Tele box cleaned and returned.
== END 2021-03-06 11:26 | disposition home health service (06) | DRG 64 ==
LOC: ER 09:32 → ED HOLD 11:17 → EDBEDREQ 03-05 11:56 → PCU 3S 03-05 12:15
PROVIDERS: ADMIT Family Medicine; ATTEND Family Medicine
PROC: B3251ZZ Computerized Tomography (CT Scan) of Bilateral Common Carotid Arteries using Low Osmolar Contrast (ICD-10-PCS; 2021-03-04)
PROC: B32G1ZZ Computerized Tomography (CT Scan) of Bilateral Vertebral Arteries using Low Osmolar Contrast (ICD-10-PCS; 2021-03-04)
PROC: B32R1ZZ Computerized Tomography (CT Scan) of Intracranial Arteries using Low Osmolar Contrast (ICD-10-PCS; 2021-03-04)
PROC: B3281ZZ Computerized Tomography (CT Scan) of Bilateral Internal Carotid Arteries using Low Osmolar Contrast (ICD-10-PCS; 2021-03-04)
PROC: 5A09357 Assistance with Respiratory Ventilation, Less than 24 Consecutive Hours, Continuous Positive Airway Pressure (ICD-10-PCS; principal; 2021-03-05)
DX: I63.412 Cerebral infarction due to embolism of left middle cerebral artery (principal); I21.A1 Myocardial infarction type 2; I61.9 Nontraumatic intracerebral hemorrhage, unspecified; E78.00 Pure hypercholesterolemia, unspecified; E78.5 Hyperlipidemia, unspecified; G47.33 Obstructive sleep apnea (adult) (pediatric); I10 Essential (primary) hypertension; I25.10 Atherosclerotic heart disease of native coronary artery without angina pectoris; R29.704 NIHSS score 4; Z79.02 Long term (current) use of antithrombotics/antiplatelets; Z79.82 Long term (current) use of aspirin; Z86.73 Personal history of transient ischemic attack (TIA), and cerebral infarction without residual deficits; Z87.442 Personal history of urinary calculi; Z88.0 Allergy status to penicillin; Z88.2 Allergy status to sulfonamides; Z79.899 Other long term (current) drug therapy; Z90.49 Acquired absence of other specified parts of digestive tract
CPT/HCPCS: 36415; 70450; 70551; 71045; 80053; 80061; 81001; 82948; 83605; 83735; 84443; 84484; 85025; 85610; 85730; 87040; 87081; 92508; 92616; 93005; 93306; 96360; 97110; 97116; 97162; 99285; G0378; J7030; Q9967

== ENCOUNTER 2022-01-30 10:43 | Inpatient (IN) | payer OTHER, BC ==
[2022-01-29 13:52] LABS: BASOPHILS # (AUTO) 0.1 X10'3 (0-0.2); BASOPHILS % (AUTO) 0.7 % (0-1); EOSINOPHILS # (AUTO) 0.4 X10'3 (0-0.9); EOSINOPHILS % (AUTO) 3.8 % (0-6); LYMPHOCYTES # (AUTO) 1.8 X10'3 (1.1-4.8); LYMPHOCYTES % (AUTO) 15.1 % (21-51); MEAN CORPUSCULAR HEMOGLOBIN 30.8 PG (27.0-31.0); MEAN CORPUSCULAR HGB CONC 33.8 g/dL (33.0-36.5); MEAN CORPUSCULAR VOLUME 91.2 FL (78-98); MEAN PLATELET VOLUME 8.4 FL (7.4-10.4); NEUTROPHILS # (AUTO) 8.3 X10'3 (1.8-7.7); NEUTROPHILS % (AUTO) 71.4 % (42-75); PRE OP HEMATOCRIT 42.9 % (42.0-52.0); PRE OP HEMOGLOBIN 14.5 g/dL (14.0-17.9); PRE OP PLATELET COUNT 309 X10'3 (140-440); RED CELL DISTRIBUTION WIDTH 12.9 % (11.5-14.5)
[2022-01-29 13:53] LABS: PRE OP PROTIME 10.4 SECONDS (9.0-12.0)
[2022-01-29 14:07] LABS: ALBUMIN 3.9 G/DL (3.4-5.0); ALBUMIN/GLOBULIN RATIO 1.1 (1.1-1.5); ALKALINE PHOSPHATASE 107 IU/L (46-116); BLOOD UREA NITROGEN 28 MG/DL (7-18); BUN/CREATININE RATIO 27.2 (5.4-32.0); CALCIUM 9.1 MG/DL (8.5-10.1); CHLORIDE 104 MMOL/L (99-107); CREATININE 1.03 MG/DL (0.60-1.10); PRE OP ALT 40 U/L (30-65); PRE OP ANION GAP 6 (8-16); PRE OP AST 27 U/L (10-37); PRE OP BILIRUB, TOTAL 0.4 MG/DL (0.0-1.0); PRE OP GLUCOSE 118 MG/DL (70-104); PRE OP POTASSIUM 3.4 MMOL/L (3.4-5.1); PRE OP SODIUM 141 MMOL/L (135-145); TOTAL CARBON DIOXIDE 30.6 MMOL/L (24-32); TOTAL PROTEIN 7.3 G/DL (6.4-8.2); eGFR 74 ML/MIN
[2022-01-29 14:22] LABS: HEMOGLOBIN A1C 5.6 % (4.5-6.2)
[2022-01-29 15:51] LABS: CLARITY,URINE CLEAR (Clear); COLOR,URINE YELLOW (Yellow); GLUCOSE, URINE NEGATIVE (Neg); KETONES,URINE NEGATIVE (Neg); LEUKOCYTE ESTERASE ,URINE NEGATIVE (Neg); NITRITES, URINE NEGATIVE (Neg); OCCULT BLOOD,URINE NEGATIVE (Neg); PROTEIN,URINE 30 mg/dl (Neg); UROBILINOGEN,URINE 0.2 E.U/dL (0.2-1.0)
[2022-01-29 15:53] LABS: UA COLLECTION TYPE NON-SPECIFIED
[2022-01-29 15:53] LABS: ABG BASE EXCESS -2.9 mmol/L (-2.0-2.0); ABG HCO3 21.4 mmol/L (22.0-26.0); ABG OXYGEN SATURATION 95.3 % (94-97); ABG PCO2 (T) 35.8 mmHg (35.0-48.0); ABG PO2 (T) 79.2 mmHg (75.0-100.0); ALLEN'S TEST POSITIVE; FCOHb 0.7 % (0.0-3.9); FMetHb 0.1 % (0.0-1.5); FO2Hb 94.5 % (94-97); TOTAL HEMOGLOBIN 14.7 G/dl (14.0-17.9)
[2022-01-29 15:56] LABS: BACTERIA,URINE NONE SEEN /HPF (Neg); MUCUS STRANDS NONE SEEN /LPF (Neg); RBC,URINE NONE SEEN /HPF (0-2); SQUAMOUS EPITHELIAL CELL,UR FEW /LPF (FEW); WBC,URINE NONE SEEN /HPF (0-4)
[~2022-01-30] VITALS: Ht 157.5 cm; Wt 104.0 kg
[~2022-01-30 10:43] MED LIST changes: +AMLO-708 PO; -AMLO10TA PO; -BENA40TA45 PO; -CARV-49 PO; +CARV12.545 PO; -CLOP75TA15 PO; -PANT40TA54 PO; -ROSU40TA PO; +ROSU40TA22 PO; +albuterol 2.5 MG/3 ML nebule NEB ONE
[2022-02-02] VITALS (22 sets, daily range): BP systolic 101–176; BP diastolic 58–97
[2022-02-02] MEDS ORDERED: ringers solution, lacted 1,000 ML IV SCH (05:00)
[2022-02-02] MEDS ORDERED: epiNEPHrine 1 mg/ml inj ONE (05:14)
[2022-02-02] MEDS ORDERED: ceFAZolin 1000mg inj ONE (05:14)
[2022-02-02] MEDS ORDERED: vancomycin 1,500 MG in NS 300ml IV soln IV ONE (05:30)
[2022-02-02] MEDS ORDERED: famotidine 20mg tablet PO ONE (05:30)
[2022-02-02] MEDS ORDERED: ceFAZolin inj. 2,000 MG in dextrose 5%-water 100 ML IV ONE (05:30)
[2022-02-02] MEDS ORDERED: DOCUMENT DATE & TIME OF BETA-BLOCKER PO ONE (05:30)
[2022-02-02] MEDS ORDERED: dextrose 50%-water 50ml dispensing syringe IV PRN ×2 (06:00→12:50)
[2022-02-02] MEDS ORDERED: insulin glargine (Lantus) pen - multi-dose SQ PRN ×2 (06:00→12:50)
[2022-02-02] MEDS ORDERED: mupirocin 2% nasal ointment 1gm UD NS ONE (06:00)
[2022-02-02] MEDS ORDERED: metoprolol tartrate 12.5mg (1/2 tablet) PO ONE (06:00)
[2022-02-02] MEDS ORDERED: Insulin Reg/NS 100units/100mL 100 ML IV SCH ×3 (06:00→13:26)
[2022-02-02] MEDS ORDERED: LORazepam 2 mg/ml vial IV ONE (06:20)
[2022-02-02] MEDS ORDERED: BUPIVAcaine/PF 2.5 mg/ml (0.25%) 30ml vial ONE (06:24)
[2022-02-02] MEDS ORDERED: propofol inj 20 ML IV ONE (07:58)
[2022-02-02] MEDS ORDERED: MIDAZolam 1 MG/ML 5ML VIAL ONE (07:58)
[2022-02-02] MEDS ORDERED: fentaNYL /PF 50mcg/ml 5ml ampule ONE ×2 (07:58→09:08)
[2022-02-02] MEDS ORDERED: rocuronium 10mg/ml inj IV ONE ×4 (07:59→10:54)
[2022-02-02] MEDS ORDERED: NORepinephrine bitart. inj. IV ONE (08:00)
[2022-02-02] MEDS ORDERED: albumin (human) 25% 100 ML IV solution IV ONE (08:00)
[2022-02-02] MEDS ORDERED: mannitol 12.5gm/50mL VIAL IV ONE (08:00)
[2022-02-02] MEDS ORDERED: magnesium sulf 1 GM/2 ML ONE (08:00)
[2022-02-02] MEDS ORDERED: aminocaproic acid 250 MG/1 ML inj. ONE (08:00)
[2022-02-02] MEDS ORDERED: heparin 10,000 units/1 ML INJ ONE (08:00)
[2022-02-02] MEDS ORDERED: methylPREDNISolone sod succ 1000mg vial ONE (08:00)
[2022-02-02] MEDS ORDERED: sodium bicarbonate (8.4%) 1 mEq/ml syringe ONE (08:00)
[2022-02-02] MEDS ORDERED: calcium chloride 100 MG/1 ML inj IV ONE (08:00)
[2022-02-02] MEDS ORDERED: LIDOcaine 2% (20 mg/ml) 5ml cardiac syringe ONE (08:00)
[2022-02-02] MEDS ORDERED: heparin 1,000 units/ml 10ml inj ONE (08:00)
[2022-02-02 08:53] LABS: ABG BASE EXCESS 0.3 mmol/L (-2.0-2.0); ABG HCO3 26.1 mmol/L (22.0-26.0); ABG OXYGEN SATURATION 95.3 % (94-97); ABG PO2 78.7 mmHg (75.0-100.0); CL (ABG) 103 mmol/L (99-107); FCOHb 0.6 % (0.0-3.9); FMetHb 0.3 % (0.0-1.5); FO2Hb 94.4 % (94-97); GLUCOSE (ABG) 136 mg/dl (70-104); IONIZED CA (ABG) 1.17 mmol/L (1.10-1.30); K (ABG) 3.4 mmol/L (3.5-5.1); TOTAL HEMOGLOBIN 13.2 G/dl (14.0-17.9)
[2022-02-02] MEDS ORDERED: heparin 10,000 units/1 ML INJ IR ONE (09:49)
[2022-02-02 09:50] LABS: ABG BASE EXCESS 2.1 mmol/L (-2.0-2.0); ABG OXYGEN SATURATION 99.3 % (94-97); ABG PCO2 43.2 mmHg (35.0-48.0); ABG PO2 303.5 mmHg (75.0-100.0); CL (ABG) 102 mmol/L (99-107); FCOHb 0.4 % (0.0-3.9); FMetHb 0.3 % (0.0-1.5); FO2Hb 98.6 % (94-97); GLUCOSE (ABG) 122 mg/dl (70-104); IONIZED CA (ABG) 1.04 mmol/L (1.10-1.30); K (ABG) 3.7 mmol/L (3.5-5.1); TOTAL HEMOGLOBIN 10.2 G/dl (14.0-17.9)
[2022-02-02 10:40] LABS: ABG BASE EXCESS VENOUS 3.5 mmol/L (-2.0 - 2.0); ABG HCO3 VENOUS 29.3 mmol/L (21.0-28.0); ABG PCO2 VENOUS 50.5 mmHg (41.0-54.0); ABG PO2 VENOUS 49.8 mmHg (25.0-35.0); CL (ABG) 102 mmol/L (99-107); FCOHb VENOUS 1.1 %; FHHb VENOUS 14.3 %; FMetHb VENOUS 0.3 % (0.0 - 0.5); FO2Hb VENOUS 84.3 %; GLUCOSE (ABG) 190 mg/dl (70-104); K (ABG) 4.7 mmol/L (3.5-5.1); TOTAL HEMOGLOBIN 10.5 G/dl (14.0-17.9)
--- NOTE | 2022-02-02 11:04 | NUR ---
Noted pt pending CABG in OR today per EMR; would benefit from diet ed once appropriate post-op. Addendum: 02/02/22 at [address] Amended: Links added.
[2022-02-02 11:12] LABS: ABG BASE EXCESS -0.8 mmol/L (-2.0-2.0); ABG HCO3 22.7 mmol/L (22.0-26.0); ABG OXYGEN SATURATION 99.2 % (94-97); ABG PCO2 33.2 mmHg (35.0-48.0); ABG PO2 286.8 mmHg (75.0-100.0); CL (ABG) 102 mmol/L (99-107); FCOHb 0.2 % (0.0-3.9); FMetHb 0.3 % (0.0-1.5); FO2Hb 98.7 % (94-97); GLUCOSE (ABG) 203 mg/dl (70-104); IONIZED CA (ABG) 1.11 mmol/L (1.10-1.30); K (ABG) 4.5 mmol/L (3.5-5.1); TOTAL HEMOGLOBIN 10.6 G/dl (14.0-17.9)
[2022-02-02 11:51] LABS: ABG BASE EXCESS 1.1 mmol/L (-2.0-2.0); ABG HCO3 25.9 mmol/L (22.0-26.0); ABG PCO2 42.1 mmHg (35.0-48.0); ABG PO2 364.7 mmHg (75.0-100.0); CL (ABG) 101 mmol/L (99-107); FCOHb 0.3 % (0.0-3.9); FMetHb 0.3 % (0.0-1.5); FO2Hb 98.4 % (94-97); GLUCOSE (ABG) 185 mg/dl (70-104); IONIZED CA (ABG) 1.37 mmol/L (1.10-1.30); K (ABG) 4.6 mmol/L (3.5-5.1); TOTAL HEMOGLOBIN 9.9 G/dl (14.0-17.9)
[2022-02-02 12:19] LABS: ABG BASE EXCESS VENOUS -3.5 mmol/L (-2.0 - 2.0); ABG HCO3 VENOUS 21.5 mmol/L (21.0-28.0); ABG PCO2 VENOUS 38.9 mmHg (41.0-54.0); ABG PO2 VENOUS 39.9 mmHg (25.0-35.0); CL (ABG) 101 mmol/L (99-107); FCOHb VENOUS 0.9 %; FHHb VENOUS 29.9 %; FMetHb VENOUS 0.3 % (0.0 - 0.5); FO2Hb VENOUS 68.9 %; GLUCOSE (ABG) 159 mg/dl (70-104); IONIZED CA (ABG) 1.28 mmol/L (1.10-1.30); K (ABG) 4.1 mmol/L (3.5-5.1); TOTAL HEMOGLOBIN 10.7 G/dl (14.0-17.9)
[2022-02-02 12:21] LABS: ACTIVATED CLOTTING TIME 104 SEC (101-148)
[2022-02-02] MEDS ORDERED: albumin (Human) 5% 250ml 250 ML IV ONE ×2 (12:46)
[2022-02-02] MEDS ORDERED: potassium CL 10mEq/100ml bag 100 ML IV PRN (12:50)
[2022-02-02] MEDS ORDERED: magnesium citrate 296ml oral solution PO PRN (12:50)
[2022-02-02] MEDS ORDERED: mineral oil 133ml enema RC PRN (12:50)
[2022-02-02] MEDS ORDERED: potassium Cl 40MEQ/1/2NS 520ml 520 ML IV PRN (12:50)
[2022-02-02] MEDS ORDERED: potassium Cl 40MEQ/270ML bag 250 ML IV PRN (12:50)
[2022-02-02] MEDS ORDERED: bisacodyl 10mg suppository rectal RC PRN (12:50)
[2022-02-02] MEDS ORDERED: Neutra Phos packet PO PRN (12:50)
[2022-02-02] MEDS ORDERED: ondansetron/PF 4mg/2ml inj IV PRN (12:50)
[2022-02-02] MEDS ORDERED: magnesium 2GM in 50ml NS 50 ML IV PRN (12:50)
[2022-02-02] MEDS ORDERED: sodium phosphate inj. 30 MMOL in dextrose 5%-water 250 ML IV PRN (12:50)
[2022-02-02] MEDS ORDERED: potassium Cl 20 mEq SR tablet PO PRN (12:50)
[2022-02-02] MEDS ORDERED: metoclopramide 5 mg/ml inj IV PRN (12:50)
[2022-02-02] MEDS: sodium chloride 0.45% 1,000 ML IV SCH (12:50)
[2022-02-02] MEDS ORDERED: acetaminophen 325mg tablet PO PRN ×2 (12:50)
[2022-02-02] MEDS ORDERED: morphine 2 MG/ML inj. syringe IV PRN (12:50)
[2022-02-02] MEDS ORDERED: sodium phosphate inj. 15 MMOL in dextrose 5%-water 250 ML IV PRN (12:50)
[2022-02-02] MEDS ORDERED: magnesium hydroxide 30ml (MOM) UD suspension PO PRN (12:50)
[2022-02-02] MEDS ORDERED: magnesium 4gm in 100ml NS 100 ML IV PRN (12:50)
--- NOTE | 2022-02-02 12:57 | NUR ---
CABG Consult: Addressed; see prior RD note. Addendum: 02/02/22 at [address] Amended: Links added.
[2022-02-02] MEDS ORDERED: nitroGLYCERIN-Tridil 50MG/D5W 250 ML IV SCH (13:13)
[2022-02-02] MEDS ORDERED: albumin (Human) 5% 250ml 250 ML IV PRN (13:38)
[2022-02-02 13:43] LABS: BASOPHILS % (AUTO) 0.3 % (0-1); EOSINOPHILS # (AUTO) 0.1 X10'3 (0-0.9); EOSINOPHILS % (AUTO) 0.7 % (0-6); HEMATOCRIT 30.4 % (42.0-52.0); HEMOGLOBIN 10.3 g/dl (14.0-17.9); LYMPHOCYTES # (AUTO) 0.7 X10'3 (1.1-4.8); LYMPHOCYTES % (AUTO) 3.9 % (21-51); MEAN CORPUSCULAR HEMOGLOBIN 31.6 PG (27.0-31.0); MEAN CORPUSCULAR HGB CONC 33.9 g/dL (33.0-36.5); MEAN CORPUSCULAR VOLUME 93.2 FL (78-98); MEAN PLATELET VOLUME 7.8 FL (7.4-10.4); MONOCYTES # (AUTO) 1.2 X10'3 (0-0.9); MONOCYTES % (AUTO) 7.2 % (2-12); NEUTROPHILS # (AUTO) 15.3 X10'3 (1.8-7.7); NEUTROPHILS % (AUTO) 87.9 % (42-75); PLATELET COUNT 155 X10'3 (140-440); RED BLOOD COUNT 3.27 X10'6 (4.70-6.10); WHITE BLOOD COUNT 17.4 X10'3 (4.5-11.0)
[2022-02-02 13:45] LABS: ABG BASE EXCESS -2.3 mmol/L (-2.0-2.0); ABG HCO3 23.4 mmol/L (22.0-26.0); ABG OXYGEN SATURATION 95.7 % (94-97); ABG PCO2 (T) 41.9 mmHg (35.0-48.0); ABG PO2 (T) 83.3 mmHg (75.0-100.0); FCOHb 0.3 % (0.0-3.9); FMetHb 0.2 % (0.0-1.5); FO2Hb 95.2 % (94-97); PEEP 5 cm H2O; RESPIRATORY RATE 12 b/min; TIDAL VOLUME 550 mL; TOTAL HEMOGLOBIN 12.1 G/dl (14.0-17.9)
[2022-02-02 13:55] LABS: APTT 30 SECONDS (22-32)
[2022-02-02 13:57] LABS: ALANINE AMINOTRANSFERASE 25 U/L (12-78); ALBUMIN 2.7 G/DL (3.4-5.0); ALBUMIN/GLOBULIN RATIO 1.4 (1.1-1.5); ALKALINE PHOSPHATASE 51 IU/L (46-116); ANION GAP 9 (8-16); ASPARTATE AMINO TRANSFERASE 39 U/L (10-37); BILIRUBIN,TOTAL 0.7 MG/DL (0.1-1.0); BLOOD UREA NITROGEN 18 MG/DL (7-18); BUN/CREATININE RATIO 22.5 (5.4-32.0); CALCIUM 7.8 MG/DL (8.5-10.1); CHLORIDE 111 MMOL/L (99-107); GLUCOSE 120 MG/DL (70-104); MAGNESIUM 2.5 MG/DL (1.5-2.4); PHOSPHORUS 1.8 MG/DL (2.3-4.5); POTASSIUM 3.1 MMOL/L (3.5-5.1); SODIUM 142 MMOL/L (135-145); TOTAL PROTEIN 4.6 G/DL (6.4-8.2); eGFR > 90 ML/MIN
[2022-02-02] MEDS: morphine 4 MG/ML inj SYRINge IV PRN ×4 (14:18→22:05)
[2022-02-02 14:41] LABS: ABG BASE EXCESS -2.4 mmol/L (-2.0-2.0); ABG OXYGEN SATURATION 89.5 % (94-97); ABG PCO2 (T) 40.6 mmHg (35.0-48.0); ABG PO2 (T) 56.6 mmHg (75.0-100.0); FCOHb 0.4 % (0.0-3.9); FMetHb 0.2 % (0.0-1.5); PATIENT TEMPERATURE 36.1; PEEP 5 cm H2O; RESPIRATORY RATE 12 b/min; TOTAL HEMOGLOBIN 13.1 G/dl (14.0-17.9)
--- NOTE | 2022-02-02 14:45 | NUR ---
MD Called Dr. Liu notified of pt increased O2 demands (100% FiO2) and ABG with PaO2 at ~66%. Orders received and RT changes made. PT is awake and following commands. Indicates he feels short of breath but is NOT in pain at this time, post pain meds.
--- NOTE | 2022-02-02 15:36 | NUR ---
At about 1315 we received to room 2014, accompanied by Dunia Still and surgical crew. Placed on ventilator, to manager cardiac, arterial line and PA line pressure zeroed & monitored. Chest tubes to suction at 20 cm. Rothman cath to gravity drainage. Dressings are dry and intact. See assessment record. All vasoactive drugs are infusing via central line.
[2022-02-02] MEDS: ceFAZolin/D5W- 1GM premix 50 ML IV SCH (16:21)
[2022-02-02] MEDS: ketorolac tromethamine 15mg/ml inj. IV SCH ×2 (16:22→20:08)
[2022-02-02] MEDS: potassium Cl 20mEq/100mL bag 100 ML IV PRN ×4 (16:56→23:17)
--- NOTE | 2022-02-02 18:28 | NUR ---
Problems reprioritized. Patient report given, questions answered & plan of care reviewed with Marlena HIADLGO.
[2022-02-02 18:39] LABS: BASOPHILS % (AUTO) 0 % (0-1); EOSINOPHILS % (AUTO) 0.1 % (0-6); HEMATOCRIT 32.5 % (42.0-52.0); HEMOGLOBIN 11.3 g/dl (14.0-17.9); LYMPHOCYTES # (AUTO) 0.4 X10'3 (1.1-4.8); LYMPHOCYTES % (AUTO) 2.6 % (21-51); MEAN CORPUSCULAR HGB CONC 34.8 g/dL (33.0-36.5); MEAN CORPUSCULAR VOLUME 91.8 FL (78-98); MONOCYTES # (AUTO) 0.7 X10'3 (0-0.9); MONOCYTES % (AUTO) 4.4 % (2-12); NEUTROPHILS # (AUTO) 14.1 X10'3 (1.8-7.7); NEUTROPHILS % (AUTO) 92.9 % (42-75); PLATELET COUNT 172 X10'3 (140-440); RED BLOOD COUNT 3.54 X10'6 (4.70-6.10); RED CELL DISTRIBUTION WIDTH 13.2 % (11.5-14.5); WHITE BLOOD COUNT 15.2 X10'3 (4.5-11.0)
[2022-02-02 18:56] LABS: ALBUMIN 3.3 G/DL (3.4-5.0); ANION GAP 8 (8-16); BLOOD UREA NITROGEN 24 MG/DL (7-18); BUN/CREATININE RATIO 24.2 (5.4-32.0); CALCIUM 8.9 MG/DL (8.5-10.1); CHLORIDE 108 MMOL/L (99-107); CREATININE 0.99 MG/DL (0.60-1.10); GLUCOSE 111 MG/DL (70-104); MAGNESIUM 2.6 MG/DL (1.5-2.4); PHOSPHORUS 3.8 MG/DL (2.3-4.5); POTASSIUM 3.6 MMOL/L (3.5-5.1); SODIUM 141 MMOL/L (135-145); TOTAL CARBON DIOXIDE 24.9 MMOL/L (24-32); eGFR 77 ML/MIN
[2022-02-02] MEDS: mupirocin 2% ointment 22GM NS SCH (20:00)
[2022-02-02] MEDS: vancomycin/NS 1 GM ADD-VANTAGE 250 ML IV SCH (20:08)
[2022-02-02] MEDS: sennosides/docusate sodium tablet PO SCH (20:09)
[2022-02-02] MEDS: atorvastatin 10mg tablet PO SCH (20:09)
[2022-02-02 21:59] LABS: ABG BASE EXCESS -3.3 mmol/L (-2.0-2.0); ABG HCO3 21.6 mmol/L (22.0-26.0); ABG OXYGEN SATURATION 95.1 % (94-97); ABG PCO2 (T) 37.6 mmHg (35.0-48.0); ABG PO2 (T) 74.9 mmHg (75.0-100.0); FCOHb 0.4 % (0.0-3.9); FMetHb 0.2 % (0.0-1.5); FO2Hb 94.5 % (94-97); PATIENT TEMPERATURE 36.6; PEEP 8 cm H2O; RESPIRATORY RATE 12 b/min; TIDAL VOLUME 650 mL; TOTAL HEMOGLOBIN 11.1 G/dl (14.0-17.9)
--- NOTE | 2022-02-02 22:30 | NUR ---
Communication -Called Dr. Liu regarding ABG and pt agitated. Orders received.
[2022-02-02] MEDS ORDERED: propofol 1000mg/100ml bottle 100 ML IV SCH (22:40)
[2022-02-02] MEDS: propofol 1000mg/100ml bottle 100 ML IV SCH (23:14)
[2022-02-03] VITALS (27 sets, daily range): BP systolic 114–170; BP diastolic 54–84
[2022-02-03] MEDS: ceFAZolin/D5W- 1GM premix 50 ML IV SCH ×3 (00:26→15:51)
[2022-02-03] MEDS: ketorolac tromethamine 15mg/ml inj. IV SCH ×2 (02:16→07:31)
[2022-02-03] MEDS: propofol 1000mg/100ml bottle 100 ML IV SCH (03:08)
[2022-02-03 03:09] LABS: BASOPHILS % (AUTO) 0 % (0-1); EOSINOPHILS % (AUTO) 0 % (0-6); HEMATOCRIT 31.2 % (42.0-52.0); HEMOGLOBIN 10.5 g/dl (14.0-17.9); LYMPHOCYTES # (AUTO) 0.5 X10'3 (1.1-4.8); MEAN CORPUSCULAR HEMOGLOBIN 31.4 PG (27.0-31.0); MEAN CORPUSCULAR HGB CONC 33.6 g/dL (33.0-36.5); MEAN CORPUSCULAR VOLUME 93.5 FL (78-98); MEAN PLATELET VOLUME 8.5 FL (7.4-10.4); MONOCYTES # (AUTO) 0.8 X10'3 (0-0.9); MONOCYTES % (AUTO) 4.8 % (2-12); NEUTROPHILS # (AUTO) 14.6 X10'3 (1.8-7.7); NEUTROPHILS % (AUTO) 92.2 % (42-75); PLATELET COUNT 161 X10'3 (140-440); RED BLOOD COUNT 3.34 X10'6 (4.70-6.10); RED CELL DISTRIBUTION WIDTH 13.4 % (11.5-14.5); WHITE BLOOD COUNT 15.8 X10'3 (4.5-11.0)
[2022-02-03 03:40] LABS: ALANINE AMINOTRANSFERASE 28 U/L (12-78); ALBUMIN/GLOBULIN RATIO 1.2 (1.1-1.5); ALKALINE PHOSPHATASE 53 IU/L (46-116); ANION GAP 7 (8-16); ASPARTATE AMINO TRANSFERASE 52 U/L (10-37); BILIRUBIN,TOTAL 0.5 MG/DL (0.1-1.0); BLOOD UREA NITROGEN 28 MG/DL (7-18); BUN/CREATININE RATIO 28.6 (5.4-32.0); CALCIUM 8.7 MG/DL (8.5-10.1); CHLORIDE 109 MMOL/L (99-107); CREATININE 0.98 MG/DL (0.60-1.10); GLUCOSE 135 MG/DL (70-104); MAGNESIUM 2.5 MG/DL (1.5-2.4); PHOSPHORUS 4.8 MG/DL (2.3-4.5); POTASSIUM 4.5 MMOL/L (3.5-5.1); SODIUM 140 MMOL/L (135-145); TOTAL CARBON DIOXIDE 23.8 MMOL/L (24-32); TOTAL PROTEIN 5.5 G/DL (6.4-8.2); TRIGLYCERIDES 51 MG/DL (20-135); eGFR 78 ML/MIN
--- NOTE | 2022-02-03 06:30 | NUR ---
Patient in room CICU 2013. I have received report with Lakshmi HIDALGO from Marlena HIDALGO and had the opportunity to ask questions and assume patient care.
[2022-02-03] MEDS ORDERED: pantoprazole 40mg Tablet.DR PO SCH (07:30)
[2022-02-03] MEDS: vancomycin/NS 1 GM ADD-VANTAGE 250 ML IV SCH ×2 (07:30→19:35)
[2022-02-03] MEDS: sennosides/docusate sodium tablet PO SCH ×2 (07:30→19:35)
[2022-02-03] MEDS: sodium chloride 0.45% 1,000 ML IV SCH (07:32)
[2022-02-03] MEDS: aspirin 81mg tab.chew PO SCH (07:36)
[2022-02-03] MEDS: metoprolol tartrate 12.5mg (1/2 tablet) PO SCH ×2 (08:00→20:00)
[2022-02-03] MEDS ORDERED: pantoprazole 40 MG vial IV SCH (08:00)
[2022-02-03] MEDS: mupirocin 2% ointment 22GM NS SCH (08:00)
[2022-02-03 08:19] LABS: ABG BASE EXCESS -2.7 mmol/L (-2.0-2.0); ABG HCO3 22.3 mmol/L (22.0-26.0); ABG OXYGEN SATURATION 94.7 % (94-97); ABG PCO2 (T) 39.2 mmHg (35.0-48.0); ABG PO2 (T) 75.1 mmHg (75.0-100.0); FCOHb 0.3 % (0.0-3.9); FMetHb 0.1 % (0.0-1.5); FO2Hb 94.3 % (94-97); TOTAL HEMOGLOBIN 11.3 G/dl (14.0-17.9)
--- NOTE | 2022-02-03 08:30 | NUR ---
Pt extubated by RT, tolerated well. Placed on 6L O2 NC.
[2022-02-03] MEDS ORDERED: hydrALAZINE 20mg/ml inj. IV PRN (10:50)
[2022-02-03] MEDS: pantoprazole 40MG/NS 100ML BAG 100 ML IV SCH (11:10)
[2022-02-03] MEDS: niCARDipine-NS 40mg/200ml IVPB 200 ML IV PRN ×5 (11:42→21:13)
--- NOTE | 2022-02-03 13:56 | NUR ---
Shift note: Pt met extubation criteria, was extubated and then his O2 requirements continued to increase. Worked with RT, increased O2 flow, attempted O2 mask. Nothing improved his sat well enough. Dr. Liu notified and orders received an BiPAP initiated by RT. Pts O2 sats stabilized. Approximately 1100, visited and orders received for HTN. 1340 call back to MD about BP. Hydralazine did not effect pts BP. Orders received.
[2022-02-03] MEDS: amLODIPine 5mg tablet PO SCH (14:20)
[2022-02-03] MEDS: morphine 4 MG/ML inj SYRINge IV PRN (15:09)
--- NOTE | 2022-02-03 18:12 | NUR ---
Problems reprioritized. Patient report given, questions answered & plan of care reviewed with Kenroy RN.
--- NOTE | 2022-02-03 18:14 | NUR ---
Problems reprioritized. Patient report given, questions answered & plan of care reviewed with Marlena RN by Lakshmi HIDALGO. Orientee documentation: I have reviewed and agree with all interventions, assessments performed and documented by Lakshmi HIDALGO.
[2022-02-03] MEDS ORDERED: furosemide 40mg/4ml inj IV ONE (19:20)
[2022-02-03] MEDS: atorvastatin 10mg tablet PO SCH (19:35)
[2022-02-03] MEDS: HYDROcodone/acetaminophen 10/325mg tab PO PRN (19:35)
--- NOTE | 2022-02-03 20:20 | NUR ---
Pt arrived from ED. Dr. Harris at bedside at bedside. Pt is intubated, opens eyes spontaneously, nods appropriately to questions. Addendum: 02/04/22 at 0508 by Marlena Avila RN WRONG PATIENT
--- NOTE | 2022-02-03 21:30 | NUR ---
Communication -called Dr. Perez regarding ABG. Orders received Addendum: 02/04/22 at 0508 by Marlena Avila RN WRONG PATIENT
[2022-02-03] MEDS ORDERED: mupirocin 2% nasal ointment 1gm UD NS SCH (21:33)
[2022-02-04] VITALS (24 sets, daily range): BP systolic 105–148; BP diastolic 48–83
[2022-02-04] MEDS: ceFAZolin/D5W- 1GM premix 50 ML IV SCH (00:16)
[2022-02-04] MEDS: niCARDipine-NS 40mg/200ml IVPB 200 ML IV PRN (00:17)
[2022-02-04 03:01] LABS: BASOPHILS % (AUTO) 0 % (0-1); EOSINOPHILS % (AUTO) 0 % (0-6); HEMATOCRIT 31.4 % (42.0-52.0); HEMOGLOBIN 10.6 g/dl (14.0-17.9); LYMPHOCYTES # (AUTO) 0.5 X10'3 (1.1-4.8); LYMPHOCYTES % (AUTO) 2.5 % (21-51); MEAN CORPUSCULAR HEMOGLOBIN 31.4 PG (27.0-31.0); MEAN CORPUSCULAR HGB CONC 33.9 g/dL (33.0-36.5); MEAN CORPUSCULAR VOLUME 92.5 FL (78-98); MEAN PLATELET VOLUME 8.9 FL (7.4-10.4); MONOCYTES # (AUTO) 1.9 X10'3 (0-0.9); NEUTROPHILS # (AUTO) 16.3 X10'3 (1.8-7.7); NEUTROPHILS % (AUTO) 87.5 % (42-75); PLATELET COUNT 171 X10'3 (140-440); RED BLOOD COUNT 3.39 X10'6 (4.70-6.10); RED CELL DISTRIBUTION WIDTH 13.1 % (11.5-14.5); WHITE BLOOD COUNT 18.6 X10'3 (4.5-11.0)
[2022-02-04 03:33] LABS: ANION GAP 8 (8-16); BLOOD UREA NITROGEN 37 MG/DL (7-18); BUN/CREATININE RATIO 39.4 (5.4-32.0); CALCIUM 8.8 MG/DL (8.5-10.1); CHLORIDE 108 MMOL/L (99-107); CREATININE 0.94 MG/DL (0.60-1.10); GLUCOSE 151 MG/DL (70-104); MAGNESIUM 2.5 MG/DL (1.5-2.4); PHOSPHORUS 4.1 MG/DL (2.3-4.5); POTASSIUM 4.2 MMOL/L (3.5-5.1); SODIUM 142 MMOL/L (135-145); TOTAL CARBON DIOXIDE 25.8 MMOL/L (24-32); eGFR 82 ML/MIN
--- NOTE | 2022-02-04 04:29 | NUR ---
Communication -called Dr. Perez regarding critical K of 2.9 and positive blood cultures. No new orders. Addendum: 02/04/22 at 0507 by Marlena Avila RN WRONG PATIENT
--- NOTE | 2022-02-04 05:00 | NUR ---
Pt stood up at bedside. Tolerated well.
[2022-02-04] MEDS: morphine 4 MG/ML inj SYRINge IV PRN (05:02)
--- NOTE | 2022-02-04 06:30 | NUR ---
Patient in room CICU 2013. I have received report from GWEN Mendiola and had the opportunity to ask questions and assume patient care.
[2022-02-04] MEDS: aspirin 81mg tab.chew PO SCH (07:59)
[2022-02-04] MEDS: pantoprazole 40MG/NS 100ML BAG 100 ML IV SCH (07:59)
[2022-02-04] MEDS: sennosides/docusate sodium tablet PO SCH ×2 (08:00→20:00)
[2022-02-04] MEDS: amLODIPine 5mg tablet PO SCH (08:00)
[2022-02-04] MEDS: metoprolol tartrate 12.5mg (1/2 tablet) PO SCH ×2 (08:00→19:46)
[2022-02-04] MEDS: HYDROcodone/acetaminophen 10/325mg tab PO PRN ×2 (09:20→19:46)
[2022-02-04] MEDS: LIDOcaine 5% patch TP SCH (09:21)
[2022-02-04] MEDS: sodium chloride 0.45% 1,000 ML IV SCH (12:50)
[2022-02-04] MEDS: gabapentin 300mg capsule PO SCH ×2 (13:40→19:46)
--- NOTE | 2022-02-04 18:19 | NUR ---
Problems reprioritized. Patient report given, questions answered & plan of care reviewed with GWEN Mcginnis.
--- NOTE | 2022-02-04 18:20 | NUR ---
Patient in room CICU 2013. I have received report from GWEN Franklin and had the opportunity to ask questions and assume patient care. Patient eating dinner w/o problem, I will continue to monitor.
[2022-02-04] MEDS: atorvastatin 10mg tablet PO SCH (19:45)
[2022-02-05] VITALS (24 sets, daily range): BP systolic 117–148; BP diastolic 64–95
[2022-02-05 02:56] LABS: BASOPHILS % (AUTO) 0.1 % (0-1); EOSINOPHILS % (AUTO) 0.1 % (0-6); HEMATOCRIT 30.3 % (42.0-52.0); HEMOGLOBIN 10.1 g/dl (14.0-17.9); LYMPHOCYTES # (AUTO) 0.9 X10'3 (1.1-4.8); LYMPHOCYTES % (AUTO) 5.9 % (21-51); MEAN CORPUSCULAR HEMOGLOBIN 31.1 PG (27.0-31.0); MEAN CORPUSCULAR HGB CONC 33.4 g/dL (33.0-36.5); MEAN PLATELET VOLUME 8.6 FL (7.4-10.4); MONOCYTES # (AUTO) 1.7 X10'3 (0-0.9); MONOCYTES % (AUTO) 10.6 % (2-12); NEUTROPHILS # (AUTO) 13.3 X10'3 (1.8-7.7); NEUTROPHILS % (AUTO) 83.3 % (42-75); PLATELET COUNT 173 X10'3 (140-440); RED BLOOD COUNT 3.25 X10'6 (4.70-6.10); RED CELL DISTRIBUTION WIDTH 13.2 % (11.5-14.5)
[2022-02-05 03:15] LABS: ALBUMIN 2.7 G/DL (3.4-5.0); ANION GAP 5 (8-16); BLOOD UREA NITROGEN 32 MG/DL (7-18); BUN/CREATININE RATIO 42.7 (5.4-32.0); CALCIUM 8.7 MG/DL (8.5-10.1); CHLORIDE 108 MMOL/L (99-107); CREATININE 0.75 MG/DL (0.60-1.10); GLUCOSE 117 MG/DL (70-104); MAGNESIUM 2.1 MG/DL (1.5-2.4); PHOSPHORUS 2.6 MG/DL (2.3-4.5); SODIUM 143 MMOL/L (135-145); TOTAL CARBON DIOXIDE 30.4 MMOL/L (24-32); TRIGLYCERIDES 63 MG/DL (20-135); eGFR > 90 ML/MIN
--- NOTE | 2022-02-05 06:20 | NUR ---
Patient in room CICU 2013. I have received report from [] and had the opportunity to ask questions and assume patient care.
--- NOTE | 2022-02-05 06:21 | NUR ---
Problems reprioritized. Patient report given, questions answered & plan of care reviewed with GWEN Prince.
[2022-02-05] MEDS: gabapentin 300mg capsule PO SCH ×3 (07:37→20:58)
[2022-02-05] MEDS: amLODIPine 5mg tablet PO SCH (07:37)
[2022-02-05] MEDS: aspirin 81mg tab.chew PO SCH (07:37)
[2022-02-05] MEDS: sennosides/docusate sodium tablet PO SCH ×2 (07:37→20:58)
[2022-02-05] MEDS: pantoprazole 40MG/NS 100ML BAG 100 ML IV SCH (07:38)
[2022-02-05] MEDS: metoprolol tartrate 12.5mg (1/2 tablet) PO SCH ×2 (07:38→20:58)
[2022-02-05] MEDS: HYDROcodone/acetaminophen 10/325mg tab PO PRN ×3 (07:42→17:24)
[2022-02-05] MEDS: LIDOcaine 5% patch TP SCH ×2 (08:00→12:25)
[2022-02-05] MEDS ORDERED: ipratropium 0.5 MG/2.5ML nebule IH PRN (08:25)
--- NOTE | 2022-02-05 08:47 | NUR ---
Chest tube #1 dc'd. #2 chest tube to remain in.
[2022-02-05] MEDS: levalbuterol 0.63mg/3ml nebule IH SCH ×3 (09:52→20:13)
[2022-02-05] MEDS: budesonide 0.5mg/2ml UD nebule IH SCH ×2 (09:52→20:13)
--- NOTE | 2022-02-05 10:27 | NUR ---
PT here to work with patient now.
--- NOTE | 2022-02-05 10:45 | NUR ---
Provided pt w/ written and verbal CABG nutrition therapy education w/ RD contact info. Addendum: 02/05/22 at [address] Amended: Links added.
--- NOTE | 2022-02-05 18:08 | NUR ---
Problems reprioritized. Patient report given, questions answered & plan of care reviewed with Connie Haro RN.
[2022-02-05] MEDS: atorvastatin 10mg tablet PO SCH (20:58)
[2022-02-06] VITALS (20 sets, daily range): BP systolic 98–141; BP diastolic 54–88
[2022-02-06] MEDS: HYDROcodone/acetaminophen 10/325mg tab PO PRN ×5 (01:38→22:52)
[2022-02-06] MEDS: levalbuterol 0.63mg/3ml nebule IH SCH ×4 (02:29→19:48)
[2022-02-06 03:11] LABS: BASOPHILS % (AUTO) 0.4 % (0-1); EOSINOPHILS # (AUTO) 0.4 X10'3 (0-0.9); HEMATOCRIT 30.6 % (42.0-52.0); HEMOGLOBIN 10.4 g/dl (14.0-17.9); LYMPHOCYTES # (AUTO) 1.3 X10'3 (1.1-4.8); LYMPHOCYTES % (AUTO) 10.9 % (21-51); MEAN CORPUSCULAR HEMOGLOBIN 31.9 PG (27.0-31.0); MEAN CORPUSCULAR HGB CONC 34.1 g/dL (33.0-36.5); MEAN CORPUSCULAR VOLUME 93.5 FL (78-98); MEAN PLATELET VOLUME 8.4 FL (7.4-10.4); MONOCYTES # (AUTO) 1.4 X10'3 (0-0.9); MONOCYTES % (AUTO) 11.3 % (2-12); NEUTROPHILS # (AUTO) 9.1 X10'3 (1.8-7.7); NEUTROPHILS % (AUTO) 74.4 % (42-75); PLATELET COUNT 182 X10'3 (140-440); RED BLOOD COUNT 3.27 X10'6 (4.70-6.10); RED CELL DISTRIBUTION WIDTH 12.9 % (11.5-14.5); WHITE BLOOD COUNT 12.2 X10'3 (4.5-11.0)
[2022-02-06 03:20] LABS: ALBUMIN 2.6 G/DL (3.4-5.0); ANION GAP 4 (8-16); BLOOD UREA NITROGEN 27 MG/DL (7-18); CALCIUM 8.8 MG/DL (8.5-10.1); CHLORIDE 105 MMOL/L (99-107); CREATININE 0.73 MG/DL (0.60-1.10); GLUCOSE 116 MG/DL (70-104); PHOSPHORUS 3.3 MG/DL (2.3-4.5); POTASSIUM 3.9 MMOL/L (3.5-5.1); SODIUM 141 MMOL/L (135-145); TOTAL CARBON DIOXIDE 32.4 MMOL/L (24-32); eGFR > 90 ML/MIN
--- NOTE | 2022-02-06 06:17 | NUR ---
Problems reprioritized. Patient report given, questions answered & plan of care reviewed with MULU HIDALGO.
--- NOTE | 2022-02-06 06:44 | NUR ---
Patient in room [facility] 2014. I have received report from Connie HIDALGO and had the opportunity to ask questions and assume patient care. Addendum: 02/06/22 at 0645 by Niki Welch RN Amended: Links added.
[2022-02-06] MEDS: metoprolol tartrate 12.5mg (1/2 tablet) PO SCH ×2 (07:21→20:23)
[2022-02-06] MEDS: sennosides/docusate sodium tablet PO SCH ×2 (07:22→20:23)
[2022-02-06] MEDS: gabapentin 300mg capsule PO SCH (07:22)
[2022-02-06] MEDS: amLODIPine 5mg tablet PO SCH (07:22)
[2022-02-06] MEDS: pantoprazole 40mg Tablet.DR PO SCH (07:22)
[2022-02-06] MEDS: aspirin 81mg tab.chew PO SCH (07:23)
[2022-02-06] MEDS: budesonide 0.5mg/2ml UD nebule IH SCH ×2 (08:25→19:48)
--- NOTE | 2022-02-06 08:29 | NUR ---
Gabe Sharpe in to see pt. Orders received.
[2022-02-06] MEDS ORDERED: furosemide 40mg/4ml inj IV ONE (08:44)
[2022-02-06] MEDS: furosemide 40mg/4ml inj IV SCH ×2 (08:50→20:24)
--- NOTE | 2022-02-06 10:45 | NUR ---
CXR obtained. Gabe Sharpe here to dc chest tube.
[2022-02-06] MEDS ORDERED: magnesium 2GM in 50ml NS 50 ML IV PRN (10:55)
[2022-02-06] MEDS ORDERED: potassium Cl 40MEQ/1/2NS 520ml 520 ML IV PRN (10:55)
[2022-02-06] MEDS ORDERED: magnesium 4gm in 100ml NS 100 ML IV PRN (10:55)
[2022-02-06] MEDS ORDERED: potassium Cl 40MEQ/270ML bag 250 ML IV PRN (10:55)
[2022-02-06] MEDS ORDERED: potassium CL 10mEq/100ml bag 100 ML IV PRN (10:55)
[2022-02-06] MEDS ORDERED: potassium Cl 20mEq/100mL bag 100 ML IV PRN (10:55)
[2022-02-06] MEDS ORDERED: potassium Cl 20 mEq SR tablet PO PRN ×2 (10:55)
--- NOTE | 2022-02-06 10:59 | NUR ---
CABG consult: Addressed in prior RD assessment Addendum: 02/06/22 at [address] Amended: Links added.
[2022-02-06] MEDS: LIDOcaine 5% patch TP SCH (12:22)
--- NOTE | 2022-02-06 12:50 | NUR ---
M.O.M. given to pt. for constipation.
--- NOTE | 2022-02-06 17:39 | NUR ---
Pt. has room assignment, 3011. RN attempted to call report but was told PCU will take pt. next shift. Pt. packed up. Currently eating dinner.
--- NOTE | 2022-02-06 19:00 | NUR ---
Report called to receiving nurse Mcginnis RN. Transferred via wheel chair with all belongings and with quality assurance monitor final on to room 2010. Patient tolerated transfer well. In person hand off report and special issues communicated to receiving nurse Mcginnis.
[2022-02-06] MEDS: magnesium Cl slow-release 64mg tablet PO SCH (20:23)
[2022-02-06] MEDS: atorvastatin 10mg tablet PO SCH (20:23)
[2022-02-07 02:00] VITALS: BP 126/83
[2022-02-07] MEDS: levalbuterol 0.63mg/3ml nebule IH SCH ×4 (02:31→19:59)
[2022-02-07 06:00] VITALS: BP 147/85
[2022-02-07 06:50] LABS: BASOPHILS % (AUTO) 0.3 % (0-1); EOSINOPHILS # (AUTO) 0.5 X10'3 (0-0.9); EOSINOPHILS % (AUTO) 4.3 % (0-6); HEMATOCRIT 31.2 % (42.0-52.0); LYMPHOCYTES # (AUTO) 1.3 X10'3 (1.1-4.8); LYMPHOCYTES % (AUTO) 12.4 % (21-51); MEAN CORPUSCULAR HEMOGLOBIN 32.3 PG (27.0-31.0); MEAN CORPUSCULAR HGB CONC 35.2 g/dL (33.0-36.5); MEAN CORPUSCULAR VOLUME 91.9 FL (78-98); MEAN PLATELET VOLUME 8.5 FL (7.4-10.4); MONOCYTES # (AUTO) 1.3 X10'3 (0-0.9); MONOCYTES % (AUTO) 11.8 % (2-12); NEUTROPHILS # (AUTO) 7.7 X10'3 (1.8-7.7); NEUTROPHILS % (AUTO) 71.2 % (42-75); PLATELET COUNT 227 X10'3 (140-440); RED CELL DISTRIBUTION WIDTH 12.7 % (11.5-14.5); WHITE BLOOD COUNT 10.8 X10'3 (4.5-11.0)
[2022-02-07 07:15] LABS: ALBUMIN 2.6 G/DL (3.4-5.0); ANION GAP 5 (8-16); BLOOD UREA NITROGEN 26 MG/DL (7-18); BUN/CREATININE RATIO 37.1 (5.4-32.0); CALCIUM 8.8 MG/DL (8.5-10.1); CHLORIDE 101 MMOL/L (99-107); GLUCOSE 96 MG/DL (70-104); POTASSIUM 3.9 MMOL/L (3.5-5.1); SODIUM 139 MMOL/L (135-145); TOTAL CARBON DIOXIDE 33.3 MMOL/L (24-32); eGFR > 90 ML/MIN
--- NOTE | 2022-02-07 07:21 | NUR ---
Initial: Pt s/p CABG this admit per EMR. Currently on NCS diet w/ avg intake 80% x 5 meals meeting est needs at this time. LBM 02/06 receiving routine and PRN bowel care. No nutrition intervention implemented at this time, will continue to monitor. Recs; 1. Continue NCS diet as tolerated 2. Bowel care per rx 3. Weekly wts Addendum: 02/07/22 at [address] Amended: Links added.
[2022-02-07] MEDS: pantoprazole 40mg Tablet.DR PO SCH (07:30)
[2022-02-07] MEDS: sennosides/docusate sodium tablet PO SCH ×2 (08:00→20:00)
[2022-02-07] MEDS: budesonide 0.5mg/2ml UD nebule IH SCH ×2 (08:19→19:59)
[2022-02-07] MEDS ORDERED: HYDR-3972 PO (08:45)
[2022-02-07] MEDS ORDERED: ASPI81TA53 PO (08:45)
[2022-02-07] MEDS: magnesium Cl slow-release 64mg tablet PO SCH ×2 (08:55→20:14)
[2022-02-07] MEDS: aspirin 81mg tab.chew PO SCH (08:56)
[2022-02-07] MEDS: metoprolol tartrate 12.5mg (1/2 tablet) PO SCH ×2 (08:59→20:40)
[2022-02-07] MEDS: amLODIPine 5mg tablet PO SCH (08:59)
[2022-02-07] MEDS: furosemide 40mg/4ml inj IV SCH ×2 (09:02→20:14)
[2022-02-07 11:00] VITALS: BP 106/76
[2022-02-07 15:00] VITALS: BP 112/72
[2022-02-07] MEDS: HYDROcodone/acetaminophen 10/325mg tab PO PRN (17:52)
[2022-02-07 18:00] VITALS: BP 137/78
[2022-02-07] MEDS: atorvastatin 10mg tablet PO SCH (20:14)
[2022-02-07 22:00] VITALS: BP 114/79
[2022-02-08 02:00] VITALS: BP 126/83
[2022-02-08] MEDS: levalbuterol 0.63mg/3ml nebule IH SCH ×2 (03:35→07:55)
[2022-02-08 06:00] VITALS: BP 134/85
[2022-02-08 06:34] LABS: BASOPHILS % (AUTO) 0.4 % (0-1); EOSINOPHILS # (AUTO) 0.6 X10'3 (0-0.9); EOSINOPHILS % (AUTO) 5.3 % (0-6); HEMATOCRIT 34.5 % (42.0-52.0); HEMOGLOBIN 11.5 g/dl (14.0-17.9); LYMPHOCYTES # (AUTO) 1.3 X10'3 (1.1-4.8); LYMPHOCYTES % (AUTO) 10.9 % (21-51); MEAN CORPUSCULAR HEMOGLOBIN 30.9 PG (27.0-31.0); MEAN CORPUSCULAR HGB CONC 33.3 g/dL (33.0-36.5); MEAN CORPUSCULAR VOLUME 92.8 FL (78-98); MEAN PLATELET VOLUME 8.1 FL (7.4-10.4); MONOCYTES # (AUTO) 1.4 X10'3 (0-0.9); MONOCYTES % (AUTO) 11.4 % (2-12); NEUTROPHILS # (AUTO) 8.6 X10'3 (1.8-7.7); PLATELET COUNT 279 X10'3 (140-440); RED BLOOD COUNT 3.72 X10'6 (4.70-6.10); RED CELL DISTRIBUTION WIDTH 13.1 % (11.5-14.5); WHITE BLOOD COUNT 11.9 X10'3 (4.5-11.0)
[2022-02-08 06:42] LABS: ALBUMIN 2.7 G/DL (3.4-5.0); ANION GAP 7 (8-16); BLOOD UREA NITROGEN 26 MG/DL (7-18); BUN/CREATININE RATIO 29.2 (5.4-32.0); CALCIUM 9.3 MG/DL (8.5-10.1); CHLORIDE 100 MMOL/L (99-107); CREATININE 0.89 MG/DL (0.60-1.10); GLUCOSE 100 MG/DL (70-104); MAGNESIUM 2.2 MG/DL (1.5-2.4); POTASSIUM 3.8 MMOL/L (3.5-5.1); SODIUM 140 MMOL/L (135-145); TOTAL CARBON DIOXIDE 32.8 MMOL/L (24-32); eGFR 87 ML/MIN
[2022-02-08] MEDS: budesonide 0.5mg/2ml UD nebule IH SCH (07:55)
[2022-02-08] MEDS: aspirin 81mg tab.chew PO SCH (08:08)
[2022-02-08] MEDS: LIDOcaine 5% patch TP SCH (08:08)
[2022-02-08] MEDS: sennosides/docusate sodium tablet PO SCH (08:08)
[2022-02-08] MEDS: pantoprazole 40mg Tablet.DR PO SCH (08:08)
[2022-02-08] MEDS: furosemide 40mg/4ml inj IV SCH (08:08)
[2022-02-08] MEDS: magnesium Cl slow-release 64mg tablet PO SCH (08:08)
[2022-02-08] MEDS: metoprolol tartrate 12.5mg (1/2 tablet) PO SCH (08:08)
[2022-02-08 08:09] VITALS: BP_SYST 134
[2022-02-08] MEDS: amLODIPine 5mg tablet PO SCH (08:09)
[2022-02-08] MEDS: HYDROcodone/acetaminophen 10/325mg tab PO PRN (08:16)
[2022-02-08] MEDS ORDERED: metoprolol tartrate 25mg tablet PO SCH (08:50)
[2022-02-08] MEDS ORDERED: CARV25TA PO (08:56)
[2022-02-08] MEDS ORDERED: CARV-50 PO ×2 (08:56)
[2022-02-08] MEDS ORDERED: FURO-150 PO (09:27)
[2022-02-08] MEDS ORDERED: POTA-206 PO (09:27)
--- NOTE | 2022-02-08 10:15 | NUR ---
Discharge instructions discussed with patient. All new medications discussed and after care instructions from CABG. Also Spoke to patient about importance of follow up md appointments. Pt states he understands. Pt's daughter will take pt home via private car. pt leaving unit via wheelchair.
[2022-02-20] MEDS ORDERED: FURO40TA4 PO (14:18)
[2022-02-20] MEDS ORDERED: POTA-206 PO (14:18)
== END 2022-02-08 10:52 | disposition home or self-care (01) | DRG 236 ==
LOC: PAS IN 02-02 05:50 → CICU 2S 02-02 08:47 → PCU 3S 02-06 19:39
PROVIDERS: ADMIT Thoracic Surgery (Cardiothoracic Vascular Surgery); ATTEND Thoracic Surgery (Cardiothoracic Vascular Surgery)
PROC: 02100Z9 Bypass Coronary Artery, One Artery from Left Internal Mammary, Open Approach (ICD-10-PCS; 2022-02-02)
PROC: 021209W Bypass Coronary Artery, Three Arteries from Aorta with Autologous Venous Tissue, Open Approach (ICD-10-PCS; 2022-02-02)
PROC: 06BP4ZZ Excision of Right Saphenous Vein, Percutaneous Endoscopic Approach (ICD-10-PCS; 2022-02-02)
PROC: B24BZZ4 Ultrasonography of Heart with Aorta, Transesophageal (ICD-10-PCS; 2022-02-02)
PROC: 5A1221Z Performance of Cardiac Output, Continuous (ICD-10-PCS; 2022-02-02)
PROC: 5A09357 Assistance with Respiratory Ventilation, Less than 24 Consecutive Hours, Continuous Positive Airway Pressure (ICD-10-PCS; principal; 2022-02-03)
PROC: 5A0935A Assistance with Respiratory Ventilation, Less than 24 Consecutive Hours, High Flow/Velocity Cannula (ICD-10-PCS; 2022-02-04)
PROC: 5A0935A Assistance with Respiratory Ventilation, Less than 24 Consecutive Hours, High Flow/Velocity Cannula (ICD-10-PCS; 2022-02-05)
PROC: 5A0935A Assistance with Respiratory Ventilation, Less than 24 Consecutive Hours, High Flow/Velocity Cannula (ICD-10-PCS; 2022-02-06)
PROC: 5A0935A Assistance with Respiratory Ventilation, Less than 24 Consecutive Hours, High Flow/Velocity Cannula (ICD-10-PCS; 2022-02-07)
DX: I25.10 Atherosclerotic heart disease of native coronary artery without angina pectoris (principal); J93.9 Pneumothorax, unspecified; J98.11 Atelectasis; I34.0 Nonrheumatic mitral (valve) insufficiency; E78.5 Hyperlipidemia, unspecified; I10 Essential (primary) hypertension; I70.0 Atherosclerosis of aorta; J44.9 Chronic obstructive pulmonary disease, unspecified; Z87.442 Personal history of urinary calculi
CPT/HCPCS: 93312; 93325; Z7506; Z7508; 36415; 36600; 71045; 71046; 80048; 80053; 81001; 82330; 82435; 82803; 82947; 82948; 83036; 83735; 83880; 84100; 84132; 84295; 84443; 84478; 85018; 85025; 85347; 85610; 85730; 86885; 86900; 86901; 86920; 87081; 87811; 93005; 93880; 93970; 94002; 94003; 94640; 94660; 94668; 94760; 97110; 97116; 97161; 97530; A4338; A4615; A4618; A4620; A6213; A6258; A6449; A7000; A7048; C1751; C9113; G0378; J0171; J0360; J0690; J1644; J1815; J1885; J1940; J2060; J2150; J2250; J2270; J2704; J2930; J3010; J3370; J3475; J3480; J3490; J7030; J7040; J7042; J7050; J7060; J7070; J7120; J7614; P9045; P9047